=== PATIENT | male | born 1990 | race Caucasian/White ===

== ENCOUNTER 2023-06-15 21:53 | Emergency (ER) | payer BC, SELFPAY ==
--- NOTE | ~2023-06-15 | XR_ITS ---
EXAMINATION: XR chest 1V portable DATE: 06/15/2023 22:13 INDICATION: Cough and congestion. TECHNIQUE: A single frontal view of the chest was obtained. COMPARISON: None. FINDINGS: There is no pneumonia, pleural effusion, or pneumothorax. The heart size is normal. IMPRESSION: 1. No acute cardiopulmonary disease. Reviewed, dictated and finalized at location A. [facility] WEIGHER
[2023-06-15 22:03] VITALS: BP 135/97; PULSE 83; RESP 20; TEMP 36.6; O2SAT 98
--- NOTE | 2023-06-15 22:07 | ED.URI ---
HPI - URI/Sore Throat General Chief Complaint: Upper Respiratory Infection Stated Complaint: SOB/Rib Pain Time Seen by Provider: 06/15/23 22:04 Source: patient Mode of arrival: ambulatory Limitations: no limitations History of Present Illness HPI Narrative: this is a 33-year-old male with history of bronchitis currently being treated with antibiotics does have an inhaler at home has a continued cough and pain with deep inspiration, cough is nonproductive no audible wheezing no history of asthma. The patient is a smoker with no chest pain no nausea vomiting no fever chills no abdominal pain no dysuria no flank pain. MD elicited complaint: cough and nasal congestion Onset (ago): week(s) Consistency: constant Severity: mild Related Data Home Medications Medication Instructions Recorded Confirmed albuterol 90 mcg/actuation aerosol 90 mcg inhalation PRN 06/15/23 06/15/23 inhaler amoxicillin 875 mg-potassium 1 tablet PO Q12H 06/15/23 06/15/23 clavulanate 125 mg tablet prednisone 5 mg tablet 5 mg PO DIRECTED 06/15/23 06/15/23 Allergies Allergy/AdvReac Type Severity Reaction Status Date / Time No Known Allergies Allergy Verified 06/15/23 22:03 Review of Systems Review of Systems: All systems reviewed & are unremarkable except as noted in HPI and below PMFSH Past Medical History Medical History Bronchitis Exam Const: General: healthy appearing and no acute distress Nutritional Appearance: well nourished Limitations: no limitations HENMT: Head: normal to inspection Neck: Neck: normal visual inspection, no lymphadenopathy and no meningeal signs Chest: Chest palpation & inspection: normal inspection of the chest Resp: Effort & Inspection: normal respiratory effort Auscultation: clear to auscultation bilaterally Cardio: Rate: regular rate Rhythm: regular rhythm GI: GI Palp: Yes Soft to palpation Back/Spine/Pelvis: Back: no CVA tenderness Skin: General skin exam: normal color Neuro: General: patient oriented x3 and moves all extremities Extrem: General: normal to inspection and no clubbing, cyanosis or edema Course Course Emergency Course: patient received a chest x-ray was performed and reviewed. Patient received DuoNeb, and COVID RSV and influenza performed and reviewed with patient Critical Care Time Critical Care Time Critical Care Time: No Discharge Plan Discharge Clinical Impression: Bronchitis, Respiratory syncytial virus (RSV) Patient Disposition: Home, Self-Care Condition: Stable Instructions: Antibiotic Form, Acute Bronchitis (ED), RSV (Respiratory Syncytial Virus) Infection (ED) Additional Instructions: advised to take medicine as prescribed and follow-up with primary symptoms persist or worsen. Prescriptions: New levofloxacin 500 mg tablet 500 mg PO DAILY Qty: 7 0RF prednisone 20 mg tablet 20 mg PO DAILY 5 Days Qty: 5 0RF benzonatate 200 mg capsule 200 mg PO TID Qty: 20 0RF No Action prednisone 5 mg Tablet 5 mg PO DIRECTED Rx Instructions: see taper instructions albuterol 90 mcg/actuation Aerosol 90 mcg INHALATION PRN amoxicillin-pot clavulanate [Augmentin] 875-125 mg Tablet 1 tablet PO Q12H Follow-up/Referrals: UNKNOWN,DOCTOR [Primary Care Provider] - Time of Disposition: 22:59
[2023-06-15] MEDS: IPRATROPIUM 0.5 MG/ALBUTEROL SULFATE 2.5 MG AMPUL.NEB 3 ML INHALATION (22:15)
[2023-06-15 22:17] VITALS: PULSE 95; RESP 20; O2SAT 98
[2023-06-15 22:27] VITALS: PULSE 97; RESP 20; O2SAT 97
[2023-06-15] MEDS: cefTRIAXone 1 GM, LIDOCAINE HCL 1% LOCAL INJ 2.1 ML IM (22:35)
[2023-06-15 22:51] LABS: Influenza A QL RT-PCR Negative (Negative); Influenza B QL RT-PCR Negative (Negative); RSV RNA, RT-PCR Positive (Negative); SARS-CoV-2 RNA PCR Negative (Negative)
[2023-06-15] MEDS: BENZONATATE 100 MG CAPSULE 200 MG PO (23:00)
[2023-06-15 23:02] VITALS: BP 133/74; PULSE 100; RESP 20; TEMP 36.6; O2SAT 97
== END 2023-06-15 23:08 | disposition home or self-care (01) ==
PROVIDERS: Emergency Provider Emergency Medicine
DX: J20.5 Acute bronchitis due to respiratory syncytial virus (principal); Z79.899 Other long term (current) drug therapy; Z20.822 Contact with and (suspected) exposure to COVID-19
CPT/HCPCS: 71045; 87637; 94640; 96372; 99283; A9270; J0696

== ENCOUNTER 2023-07-16 23:41 | Emergency (ER) | payer BC, SELFPAY ==
[2023-07-16 23:41] VITALS: BP 156/100; PULSE 110; RESP 20; TEMP 36.3; O2SAT 100
--- NOTE | 2023-07-16 23:59 | ED.SKABFB ---
HPI - Skin/Abscess/Foreign Bdy General Chief complaint: Unspecified Stated complaint: Genital bumps Time Seen by Provider: 07/16/23 23:44 History of Present Illness HPI narrative: 33 years old white male came to the hospital by private car complaining of lumps under the skin of his penis dorsally at least 2. Noticed while urinating today. He denies any pain or fever or chills or discharge. Related Data Home Medications Medication Instructions Recorded Confirmed No Home Medications 07/17/23 07/17/23 Allergies Allergy/AdvReac Type Severity Reaction Status Date / Time No Known Allergies Allergy Verified 07/17/23 00:02 Review of Systems Review of Systems: All systems reviewed & are unremarkable except as noted in HPI and below PMFSH Past Medical History Medical History Bronchitis Exam Narrative: General appearance: Well-developed, well-nourished Skin: Normal color Head: Normocephalic, nontraumatic Eyes: Clear conjunctiva ENT: Oropharynx normal, ears normal, nose normal Neck: Supple, nontender Chest and respiratory: Airway patent, no respiratory distress, no accessory muscle use Heart: Regular rate/rhythm Abdomen: Soft, nontender, no organomegaly, quiet bowel sounds , gentle exam showed 3 cystic lesion under the skin of the penis dorsally, nontender, no discharge, no erythema. Vascular: Normal peripheral pulses, normal capillary refill. Musculoskeletal: Normal range of motion, nontender back Neurologic: Alert and oriented ?3, INTEGRATED SPECIALIST is normal as tested, no gross motor deficit MDM - Skin/Abscess/Foreign Bdy MDM Narrative Medical decision making narrative: My concern are cyst which are fluid filled pumps . They can appeare any where on the body including the penis. Most of the time penile cyst are harmless, . Patient was advised to follow-up with urologist in 5-7 days if there is no improvement or if they are getting worse. Critical Care Time Critical Care Time Critical Care Time: No Discharge Plan Discharge Clinical Impression: Skin lesion Patient Disposition: Home, Self-Care Condition: Stable Instructions: Cyst (ED) Additional Instructions: Call urologist in 5-7 days if there is no improvement or if you are getting worse Prescriptions: No Action prednisone 5 mg Tablet 5 mg PO DIRECTED Rx Instructions: see taper instructions albuterol 90 mcg/actuation Aerosol 90 mcg INHALATION PRN amoxicillin-pot clavulanate [Augmentin] 875-125 mg Tablet 1 tablet PO Q12H levofloxacin 500 mg tablet 500 mg PO DAILY Qty: 7 0RF prednisone 20 mg tablet 20 mg PO DAILY 5 Days Qty: 5 0RF benzonatate 200 mg capsule 200 mg PO TID Qty: 20 0RF Follow-up/Referrals: Carson Burleson MD [Physician] - 07/22/23 Myron Schilling MD [Primary Care Provider] -
== END 2023-07-17 00:08 | disposition home or self-care (01) ==
PROVIDERS: Emergency Provider Emergency Medicine; PCP Family Medicine
DX: L98.9 Disorder of the skin and subcutaneous tissue, unspecified (principal)
CPT/HCPCS: 99281

== ENCOUNTER 2023-11-14 17:41 | Emergency (ER) | payer BC, SELFPAY ==
[2023-11-14 18:47] VITALS: BP 143/89; PULSE 101; RESP 20; TEMP 36.1; O2SAT 97
[2023-11-14 18:51] VITALS: O2SAT 97
[2023-11-14 19:01] LABS: Influenza A QL RT-PCR Negative (Negative); Influenza B QL RT-PCR Negative (Negative); RSV RNA, RT-PCR Negative (Negative); SARS-CoV-2 RNA PCR Negative (Negative); Strep Group A RT-PCR NOT DETECTED (Negative)
--- NOTE | 2023-11-14 19:13 | ED.SOB ---
HPI - SOB/Dyspnea General Chief Complaint: Upper Respiratory Infection Stated Complaint: covid symptoms Time Seen by Provider: 11/14/23 17:42 Source: patient Mode of arrival: ambulatory Limitations: no limitations History of Present Illness HPI Narrative: patient is a 33-year-old male that presents with cough congestion with no audible wheezing mild shortness of breath with no chest pain no fever chills no nausea vomiting no abdominal pain. MD elicited complaint: shortness of breath and cough Onset (ago): day(s) Context: recent illness Related Data Allergies Allergy/AdvReac Type Severity Reaction Status Date / Time No Known Allergies Allergy Verified 07/17/23 00:02 Review of Systems Review of Systems: All systems reviewed & are unremarkable except as noted in HPI and below PMFSH Past Medical History Medical History Bronchitis Exam Const: General: healthy appearing and no acute distress Nutritional Appearance: well nourished Orientation/consciousness: patient oriented x3 Neck: Neck: normal visual inspection Chest: Chest palpation & inspection: normal inspection of the chest Resp: Effort & Inspection: normal respiratory effort Auscultation: clear to auscultation bilaterally Cardio: Rate: regular rate Rhythm: regular rhythm GI: GI Palp: Yes Soft to palpation Auscultation: normal bowel sounds Urinary Catheter: Urinary Catheter: patent and draining Back/Spine/Pelvis: Back: no CVA tenderness Skin: General skin exam: normal color Rashes: no rashes Course Course Emergency Course: COVID RSV and influenza and strep negative will discharge patient with p.o. antibiotics and ProAir inhaler. Vital Signs Vital signs: Vital Signs Temperature 36.1 C L 11/14/23 18:47 Pulse Rate 101 H 11/14/23 18:47 Respiratory Rate 11/14/23 18:47 Blood Pressure 143/89 H 11/14/23 18:47 Pulse Oximetry 97 11/14/23 18:47 Oxygen Delivery Room Air 11/14/23 18:47 Temperature 36.1 C L 11/14/23 18:47 Pulse Rate 101 H 11/14/23 18:47 Respiratory Rate 20 11/14/23 18:47 Blood Pressure 143/89 H 11/14/23 18:47 Pulse Oximetry 97 11/14/23 18:51 Oxygen Delivery Room Air 11/14/23 18:51 MDM - SOB/Dyspnea Lab Data Labs: Lab Results 11/14/23 Range/Units 18:20 Influenza A (RT-PCR) Negative (Negative) Influenza B (RT-PCR) Negative (Negative) RSV (RT-PCR) Negative (Negative) SARS-CoV-2 RNA (RT-PCR) Negative (Negative) Group A Strep (PCR) Not detected (Negative) Critical Care Time Critical Care Time Critical Care Time: No Discharge Plan Discharge Clinical Impression: Bronchitis Patient Disposition: Home, Self-Care Condition: Stable Instructions: Antibiotic Form, Acute Bronchitis (ED) Additional Instructions: Advised to take medicine as prescribed and follow-up with primary care physician if symptoms persist or worsen. Prescriptions: New azithromycin [Zithromax Z-Femi] 250 mg tablet See Rx Instructions .ROUTE .COMPLEX Qty: 6 0RF Rx Instructions: For 250 mg dose pack: take 500 mg today (day 1), then 250 mg for 4 days (days 2-5) ProAir RespiClick 90 mcg/actuation aerosol powdr breath activated 2 inh inhalation QID PRN (Reason: shortness of breath or wheezing) Qty: 1 0RF Follow-up/Referrals: Myron Schilling MD [Primary Care Provider] - Time of Disposition: 19:16
[2023-11-14 19:34] VITALS: BP 142/99; PULSE 91; RESP 22; TEMP 36.9; O2SAT 97
== END 2023-11-14 19:35 | disposition home or self-care (01) ==
PROVIDERS: Emergency Provider Emergency Medicine; PCP Family Medicine
DX: J40 Bronchitis, not specified as acute or chronic (principal); Z20.822 Contact with and (suspected) exposure to COVID-19
CPT/HCPCS: 87637; 87651; 99283

== ENCOUNTER 2024-03-19 18:43 | Emergency (ER) | payer BC, SELFPAY ==
--- NOTE | ~2024-03-19 | CT_ITS ---
History: Blunt trauma PROCEDURE: CT cervical spine without intravenous contrast. COMPARISON: None TECHNIQUE: Multiple contiguous axial images of the cervical spine were performed without the administration of i ntravenous contrast. DLP: 524 mGy-cm FINDINGS: Straightening and slight reversal of the normal curvature of the cervical spine is identified, likely muscular in origin. No acute fractures are present. The bilateral lung apices are unremarkable. No soft tissue abnormality is present. The airway is unremarkable. Impression: Straightening and slight reversal of the normal curvature of the cervical spine, likely muscular in o rigin. No acute fracture. Reviewed, dictated and finalized at location A. E [facility] Impression: Straightening and slight reversal of the normal curvature of the cervical spine , likely muscular in origin. No acute fracture.
--- NOTE | ~2024-03-19 | CT_ITS ---
History: Head pain after a fall without loss of consciousness PROCEDURE: CT head without contrast. COMPARISON: None TECHNIQUE: Axial imaging of the head performed from the skull base to the vertex without IV contrast. Sagittal a nd coronal reformations obtained. DLP: 605 mGy-cm FINDINGS: The ventricles are normal in size, shape and position. There is no mass, mass effect or midline shift. There is no abnormal extra-axial fluid collection or intracranial hemorrhage. Visualized paranasal sinuses are clear. The mastoid air cells are well aerated. No acute displaced fractures within the overlying cranium. Impression: No acute intracranial hemorrhage or suspicious mass effect. Reviewed, dictated and finalized at location A. B[employer] OPERATOR Impression: No acute intracranial hemorrhage or suspicious mass effect.
--- NOTE | ~2024-03-19 | CT_ITS ---
History: Trauma PROCEDURE: CT thoracic spine without intravenous contrast. COMPARISON: None TECHNIQUE: Multiple contiguous axial images of the thoracic spine were performed without the administration of i ntravenous contrast. DLP: 1539 mGy-cm FINDINGS: Preservation of the normal curvature of the thoracic spine is identified. No acute compression fractures are present. No significant degenerative disease is present No soft tissue abnormality is noted. Impression: No acute fracture, as detailed above. Reviewed, dictated and finalized at location A. [facility] [employer] Impression: No acute fracture, as detailed above.
[2024-03-19 18:43] VITALS: BP 164/99; PULSE 92; RESP 16; TEMP 36.6; O2SAT 97
[2024-03-19] MEDS: KETOROLAC (*BKC) 60 MG/2 ML VIAL IM (18:59)
--- NOTE | 2024-03-19 19:20 | ED_ITS ---
HPI - Fall General Chief Complaint: Fall Stated Complaint: back pain Time Seen by Provider: 03/19/24 18:51 Source: patient Mode of arrival: ambulatory Limitations: no limitations History of Present Illness HPI Narrative: this is a 33-year-old male that while standing on a chair, the chair broke and the patient fell back hitting his neck and midback area did not lose consciousness rates his pain about 7 out 10 with no neurological deficits no other injuries currently no headache no blurry vision no nausea vomiting no shortness of breath no chest pain. MD complaint: fall Onset (ago): hour(s) Fall from: standing Fall witnessed: no Place fall occurred: home Loss of consciousness: none Prolonged down time: no Symptoms prior to fall: none Context: tripped/slipped Related Data Allergies Allergy/AdvReac Type Severity Reaction Status Date / Time No Known Allergies Allergy Verified 03/19/24 18:51 Review of Systems Review of Systems: All systems reviewed & are unremarkable except as noted in HPI and below PMFSH Past Medical History Medical History Bronchitis Exam Const: General: healthy appearing Nutritional Appearance: well nourished and obese Orientation/consciousness: patient oriented x3 Limitations: no limitations HENMT: Head: normal to inspection Ears: external ears normal Face/Nose/Sinus: Normal external nose present Face and sinus: normal facial exam Mouth: Yes Normal oral and palatal mucosa present Eyes: Conjunctivae: conjunctivae normal Pupils: Equal, round and reactive p upils present EOM: EOMs intact bilaterally Direct Ophthalmoscopy: no photophobia Neck: Neck: normal visual inspection, no lymphadenopathy and no meningeal signs Chest: Chest palpation & inspection: normal inspection of the chest Resp: Effort & Inspection: normal respiratory effort Auscultation: clear to auscultation bilaterally Cardio: Rate: regular rate Rhythm: regular rhythm GI: GI Palp: Yes Soft to palpation Auscultation: normal bowel sounds Back/Spine/Pelvis: Back: no CVA tenderness Skin: General skin exam: normal color Rashes: no rashes Neuro: General: patient oriented x3, moves all extremities, no meningeal signs and no focal motor deficits Extrem: Other: Tenderness cervical neck area and upper mid back with palpation and movement. Course Course Emergency Course: Patient received 60mg IM Toradol in after reassessment patient's pain level has improved. CT scan of the brain cervical spine and thoracic spine performed and reviewed with patient. Vital Signs Vital signs: Vital Signs Temperature 36.6 C 03/19/24 18:43 Pulse Rate 92 03/19/24 18:43 Respiratory Rate 16 03/19/24 18:43 Blood Pressure 164/99 H 03/19/24 18:43 Pulse Oximetry 97 03/19/24 18:43 Oxygen Delivery Room Air 03/19/24 18:43 Temperature 36.6 C 03/19/24 18:43 Pulse Rate 87 03/19/24 19:25 Respiratory Rate 18 03/19/24 19:25 Blood Pressure 127/100 H 03/19/24 19:25 Pulse Oximetry 98 03/19/24 19:25 Oxygen Delivery Room Air 03/19/24 19:25 Critical Care Time Critical Care Time Critical Care Time: No Discharge Plan Discharge Clinical Impression: Concussion Qualifiers: Encounter type: initial encounter Loss of consciousness presence/duration: without LOC Qualified Code(s): S06.0X0A - Concussion without loss of consciousness, initial encounter Acute cervical myofascial strain Qualifiers: Encounter type: initial encounter Qualified Code(s): S16.1XXA - Strain of muscle, fascia and tendon at neck level, initial encounter Patient Disposition: Home, Self-Care Condition: Stable Instructions: Antibiotic Form, Cervical Strain (ED), Concussion (ED) Additional Instructions: advised to take medication as prescribed and follow up with primary within 1 week for further evaluation and treatment. Prescriptions: New tramadol 50 mg tablet 50 mg PO Q6H PRN (Reason: pain) Qty: 20 0RF No Action azithromycin [Zithromax Z-Femi] 250 mg tablet See Rx Instructions .ROUTE .COMPLEX Qty: 6 0RF Rx Instructions: For 250 mg dose pack: take 500 mg today (day 1), then 250 mg for 4 days (days 2-5) ProAir RespiClick 90 mcg/actuation aerosol powdr breath activated 2 inh inhalation QID PRN (Reason: shortness of breath or wheezing) Qty: 1 0RF Follow-up/Referrals: UNKNOWN,DOCTOR [Non-Staff] - Time of Disposition: 20:27
[2024-03-19 19:25] VITALS: BP 127/100; PULSE 87; RESP 18; O2SAT 98
[2024-03-19 20:32] VITALS: BP 143/92; PULSE 78; RESP 20; O2SAT 97
== END 2024-03-19 20:32 | disposition home or self-care (01) ==
PROVIDERS: Emergency Provider Emergency Medicine; PCP Family Medicine
DX: S16.1XXA Strain of muscle, fascia and tendon at neck level, initial encounter (principal); S06.0X0A Concussion without loss of consciousness, initial encounter; Y92.009 Unspecified place in unspecified non-institutional (private) residence as the place of occurrence of the external cause; W07.XXXA Fall from chair, initial encounter
CPT/HCPCS: 70450; 72125; 72128; 96372; 99284; J1885

== ENCOUNTER 2024-07-01 01:16 | Emergency (ER) | payer BC, SELFPAY ==
[2024-07-01 01:16] VITALS: BP 169/118; PULSE 76; RESP 18; TEMP 37.2; O2SAT 97
--- NOTE | 2024-07-01 01:31 | ED_ITS ---
HPI - Skin/Abscess/Foreign Bdy General Chief complaint: Skin/Abscess/Foreign Body Stated complaint: Rash on Left Leg Time Seen by Provider: 07/01/24 01:31 Source: patient Mode of arrival: ambulatory Limitations: no limitations History of Present Illness HPI narrative: Patient is a 34-year-old male with a left lateral leg skin rash. Also his blood pressure has been running high for a while and he gets woozy more so lately. complaint: rash ( Left lateral leg) Onset (ago): week(s) ( 1) Tetanus up to date: unsure Location: LLE ( lateral) Severity: mild Severity scale (1-10): 1 Quality: burning and pruritic Pain Consistency: constant Relieving factors: none Exacerbating factors: none Context: other ( patient has a left lateral leg red rash and he wears boots for work with a possible exposure to an irritant) Associated symptoms: denies other symptoms Treatments prior to arrival: none Related Data Allergies Allergy/AdvReac Type Severity Reaction Status Date / Time No Known Allergies Allergy Verified 03/19/24 18:51 Review of Systems Review of Systems: All systems reviewed & are unremarkable except as noted in HPI and below Constitutional: Constitutional: Reports no additional constitutional complaints Eyes: Eyes: Reports no additional eye complaints ENT: Reports system reviewed and no additional complaints, except as documented Cardiovascular: Cardiovascular: Reports no additional cardiovascular complaints Respiratory: Respiratory: Reports no additional respiratory complaints Gastrointestinal: Gastrointestinal: Reports no additional gastrointestinal complaints Genitourinary: Genitourinary: Reports no additional male genitourinary complaints Musculoskeletal: Musculoskeletal: Reports no additional musculoskeletal complaints Integumentary/Breasts: Skin/Breast: Reports system reviewed and no additional complaints, except as docu Neurologic: Reports system reviewed and no additional complaints, except as documented Psychiatric: Psychiatric: Reports no additional psychiatric complaints Endocrine: Endocrine: Reports no additional endocrine complaints Hematologic/Lymphatic: Hematologic/Lymphatic: Reports no additional hematologic/lymphatic complaints Allergic/Immunologic: Allergic/Immunologic: Reports no additional allergic/ immunologic complaints PMFSH Past Medical History Medical History Bronchitis Exam Const: General: healthy appearing Nutritional Appearance: well nourished Orientation/consciousness: patient oriented x3 Limitations: no limitations HENMT: Head: normal to inspection Ears: external ears normal Face/Nose/Sinus: Normal external nose present Eyes: Conjunctivae: conjunctivae normal Pupils: Equal, round and reactive pupils present EOM: EOMs intact bilaterally Neck: Neck: normal visual inspection Chest: Chest palpation & inspection: normal inspection of the chest Resp: Effort & Inspection: normal respiratory effort and not labored Auscultation: clear to auscultation bilaterally and no crackles Cardio: Rate: regular rate Rhythm: regular rhythm Heart sounds: no murmurs GI: Inspection: non-distended Auscultation: normal bowel sounds : General: Yes bladder normal to palpation Back/Spine/Pelvis: Back: no CVA tenderness Skin: General skin exam: normal color Rashes: rash noted Wounds: no wounds Other: left lateral leg has a 4 cm circular erythema pruritic eczematous patch Neuro: General: patient oriented x3 Cranial nerves: Yes Nystagmus not present Speech: normal speech Extrem: General: normal to inspection Psych: Mental Status: mental status grossly normal Affect: normal affect Attitude: cooperative Course Vital Signs Vital signs: Vital Signs Temperature 37.2 C 07/01/24 01:16 Pulse Rate 76 07/01/24 01:16 Respiratory Rate 18 07/01/24 01:16 Blood Pressure 169/118 H 07/01/24 01:16 Pulse Oximetry 97 07/01/24 01:16 Oxygen Delivery Room Air 07/01/24 01:16 Temperature 37.2 C 07/01/24 01:16 Pulse Rate 76 07/01/24 01:16 Respiratory Rate 18 07/01/24 01:16 Blood Pressure 169/118 H 07/01/24 01:16 Pulse Oximetry 97 07/01/24 01:16 Oxygen Delivery Room Air 07/01/24 01:16 MDM - Skin/Abscess/Foreign Bdy MDM Narrative Medical decision making narrative: patient is a 34-year-old male with a rash as well as elevated blood pressure. We will give him cream to get tomorrow for the rash as that appears to be dermatitis. Further we will recheck his values of blood pressure and if elevated will give him clonidine this evening. I will send him home with losartan. He will need to talk to his doctor about blood pressure. Discharge Plan Discharge Clinical Impression: Dermatitis of lower extremity, Elevated blood pressure reading without diagnosis of hypertension Patient Disposition: Home, Self-Care Condition: Stable Instructions: Hypertension (ED), Dermatitis (ED) Additional Instructions: please follow-up with the primary doctor in the next week. Have your blood pressure rechecked and make sure the medicine I have given is a knife at that time. Otherwise they will increase the medication. Also discuss with your doctor about the rash. Patient Language: Bulgarian Prescriptions: New losartan 25 mg tablet 25 mg PO DAILY Qty: 30 0RF clotrimazole-betamethasone 1-0.05 % cream 1 applic topical BID PRN (Reason: rash) Qty: 15 0RF No Action azithromycin [Zithromax Z-Femi] 250 mg tablet See Rx Instructions .ROUTE .COMPLEX Qty: 6 0RF Rx Instructions: For 250 mg dose pack: take 500 mg today (day 1), then 250 mg for 4 days (days 2-5) ProAir RespiClick 90 mcg/actuation aerosol powdr breath activated 2 inh inhalation QID PRN (Reason: shortness of breath or wheezing) Qty: 1 0RF tramadol 50 mg tablet 50 mg PO Q6H PRN (Reason: pain) Qty: 20 0RF Follow-up/Referrals: Myron Schilling MD [Primary Care Provider] - Time of Disposition: 02:21
[2024-07-01] MEDS: cloNIDine HCL 0.1 MG TABLET PO (02:25)
[2024-07-01 02:49] VITALS: BP 144/97; PULSE 70; RESP 18; O2SAT 99
== END 2024-07-01 02:49 | disposition home or self-care (01) ==
PROVIDERS: Emergency Provider Emergency Medicine; PCP Family Medicine
DX: L30.9 Dermatitis, unspecified (principal); R03.0 Elevated blood-pressure reading, without diagnosis of hypertension
CPT/HCPCS: 99283; A9270

== ENCOUNTER 2024-07-07 19:32 | Emergency (ER) | payer BC, SELFPAY ==
--- NOTE | 2024-07-07 19:34 | ED.URI ---
HPI - URI/Sore Throat General Chief Complaint: Dental/Oral Stated Complaint: R side of face infection Time Seen by Provider: 07/07/24 19:33 Source: patient Mode of arrival: ambulatory Limitations: no limitations History of Present Illness HPI Narrative: patient is a 34-year-old male with right face pain and right ear pain as well as right dental pain over the past few days. He has known dental issues already and now has right ear pain and sinus pain and pressure as well. All symptoms are on the right side of the face. MD elicited complaint: sinus pain ( Right face) and other ( right dental pain and right ear pain) Pertinent past history: other ( known dental cavities/ trauma) Onset (ago): day(s) ( 3) Consistency: constant Severity: moderate Pain scale (0-10): 8 Description of mucous: clear Able to tolerate fluids by mouth: Yes Exacerbating factors: nothing Relieving factors: nothing Context: other ( upcoming dental work planned by patient) Associated symptoms: nasal congestion and ear pain ( right) Treatments prior to arrival: acetaminophen and ibuprofen Related Data Allergies Allergy/AdvReac Type Severity Reaction Status Date / Time No Known Allergies Allergy Verified 07/01/24 02:29 Review of Systems Review of Systems: All systems reviewed & are unremarkable except as noted in HPI and below Constitutional: Constitutional: Reports no additional constitutional complaints Eyes: Eyes: Reports no additional eye complaints ENT: Reports system reviewed and no additional complaints, except as documented Cardiovascular: Cardiovascular: Reports no additional cardiovascular complaints Respiratory: Respiratory: Reports no additional respiratory complaints Gastrointestinal: Gastrointestinal: Reports no additional gastrointestinal complaints Genitourinary: Genitourinary: Reports no additional male genitourinary complaints Musculoskeletal: Musculoskeletal: Reports no additional musculoskeletal complaints Integumentary/Breasts: Skin/Breast: Reports system reviewed and no additional complaints, except as docu Neurologic: Reports system reviewed and no additional complaints, except as documented Psychiatric: Psychiatric: Reports no additional psychiatric complaints Endocrine: Endocrine: Reports no additional endocrine complaints Hematologic/Lymphatic: Hematologic/Lymphatic: Reports no additional hematologic/lymphatic complaints Allergic/Immunologic: Allergic/Immunologic: Reports no additional allergic/immunologic complaints PMFSH Past Medical History Medical History Bronchitis Exam Const: General: healthy appearing Nutritional Appearance: well nourished Orientation/consciousness: patient oriented x3 HENMT: Head: normal to inspection Ears: external ears normal Face/Nose/Sinus: Normal external nose present Other: red tympanic membrane on the right to include a right red auditory canal (known to use Q-tips); tender sinuses on the right frontal and maxillary area; poor dentition with fractured teeth in the right upper and more so right lower jaw without abscess formation Eyes: Conjunctivae: conjunctivae normal Pupils: Equal, round and reactive pupils present EOM: EOMs intact bilaterally Neck: Neck: normal visual inspection Chest: Chest palpation & inspection: normal inspection of the chest Resp: Effort & Inspection: normal respiratory effort and not labored Auscultation: clear to auscultation bilaterally and no crackles Cardio: Rate: regular rate Rhythm: regular rhythm Heart sounds: no murmurs GI: Inspection: non-distended GI Palp: Yes Soft to palpation and No Tenderness to palpation present (GI) Auscultation: normal bowel sounds : General: Yes bladder normal to palpation Back/Spine/Pelvis: Back: no CVA tenderness Skin: General skin exam: normal color Rashes: no rashes Wounds: no wounds Neuro: General: patient oriented x3 Cranial nerves: Yes Nystagmus not present Speech: normal speech Extrem: General: normal to inspection Psych: Mental Status: mental status grossly normal Affect: normal affect Attitude: cooperative Course Vital Signs Vital signs: Vital Signs Temperature 37.3 C 07/07/24 19:35 Pulse Rate 101 H 07/07/24 19:35 Respiratory Rate 18 07/07/24 19:35 Blood Pressure 169/106 H 07/07/24 19:35 Pulse Oximetry 98 07/07/24 19:35 Oxygen Delivery Room Air 07/07/24 19:35 Temperature 37.3 C 07/07/24 19:35 Pulse Rate 101 H 07/07/24 19:35 Respiratory Rate 18 07/07/24 19:35 Blood Pressure 169/106 H 07/07/24 19:35 Pulse Oximetry 98 07/07/24 19:35 Oxygen Delivery Room Air 07/07/24 19:35 MDM - URI/Sore Throat MDM Narrative Medical decision making narrative: patient is a 34-year-old male with sinus and dental and ear pains for the past few days. We will go ahead and treat with antibiotics and steroids and ear drops. Discharge Plan Discharge Clinical Impression: Mandible pain Otitis media Qualifiers: Otitis media type: unspecified Chronicity: acute Qualified Code(s): H66.90 - Otitis media, unspecified, unspecified ear Otitis externa Qualifiers: Otitis externa type: unspecified type Chronicity: acute Laterality: right Qualified Code(s): H60.501 - Unspecified acute noninfective otitis externa, right ear Sinusitis Qualifiers: Sinusitis location: unspecified location Chronicity: acute Recurrence: non-recurrent Qualified Code(s): J01.90 - Acute sinusitis, unspecified Patient Disposition: Home, Self-Care Condition: Stable Instructions: Sinusitis (ED), Ear Infection (ED) Patient Language: Rwandan Prescriptions: New amoxicillin-pot clavulanate 875-125 mg tablet 1 tablet PO BID 10 Days Qty: 20 0RF prednisone 20 mg tablet 40 mg PO DAILY 3 Days Qty: 6 0RF ykwwxped-ttqhaozhr-MC 3.5-10,000-1 mg/mL-unit/mL-% drops,suspension 3 drp RIGHT EAR TID 7 Days Qty: 10 0RF No Action azithromycin [Zithromax Z-Femi] 250 mg tablet See Rx Instructions .ROUTE .COMPLEX Qty: 6 0RF Rx Instructions: For 250 mg dose pack: take 500 mg today (day 1), then 250 mg for 4 days (days 2-5) ProAir RespiClick 90 mcg/actuation aerosol powdr breath activated 2 inh inhalation QID PRN (Reason: shortness of breath or wheezing) Qty: 1 0RF tramadol 50 mg tablet 50 mg PO Q6H PRN (Reason: pain) Qty: 20 0RF losartan 25 mg tablet 25 mg PO DAILY Qty: 30 0RF clotrimazole-betamethasone 1-0.05 % cream 1 applic topical BID PRN (Reason: rash) Qty: 15 0RF Follow-up/Referrals: Myron Schilling MD [Primary Care Provider] - Time of Disposition: 19:53
[2024-07-07 19:35] VITALS: BP 169/106; PULSE 101; RESP 18; TEMP 37.3; O2SAT 98
--- NOTE | 2024-07-07 19:44 | PC.NURSE ---
DR PETERSON AT THE BEDSIDE
[2024-07-07] MEDS: AMOXICILLIN/CLAVULANATE K 875-125 MG TAB 1 TABLET PO (19:55)
[2024-07-07] MEDS: predniSONE 20 MG TABLET 40 MG PO (19:55)
[2024-07-07] MEDS: NEOMYCIN/POLYMYXIN/HYDROCORT OT SUSP 10 ML BTL (*BKC) 3 DROP RIGHT EAR (19:55)
== END 2024-07-07 20:13 | disposition home or self-care (01) ==
LOC: CHSED 19:56
PROVIDERS: Emergency Provider Emergency Medicine; PCP Family Medicine
DX: H66.90 Otitis media, unspecified, unspecified ear (principal); H60.501 Unspecified acute noninfective otitis externa, right ear; J01.90 Acute sinusitis, unspecified; R68.84 Jaw pain
CPT/HCPCS: 99283; A9270; J7512

== ENCOUNTER 2024-08-14 19:00 | Emergency (ER) | payer BC, SELFPAY ==
--- NOTE | ~2024-08-14 | CT_ITS ---
CT abdomen pelvis w con Ordering provider: Max Harris MD History: 34 years Male with . RLQ ABD AND RIGHT GROIN PAIN. QUESTIONABLE HERNIA. . Comparison: None. Technique: CT abdomen and pelvis with IV and without oral contrast. Automated exposure control and it erative reconstruction technique were employed. The dose-length product was 1866.29 mGy-cm. 100 mL Om nipaque 350 was given IV. Findings: VISUALIZED LOWER CHEST: Normal. Old healed fracture in the right eighth rib. UPPER ABDOMINAL ORGANS: Liver: Hepatomegaly. Gallbladder: Contracted. Spleen: Normal. Stomach/duodenum: Normal. Pancreas: Normal. Adrenals: Normal. Kidneys: Normal. PELVIC ORGANS: The bladder is underfilled with thickened wall. Evaluation for cystitis advised. BOWEL AND MESENTERY: Colon: No evidence of diverticulitis.. Normal appendix. Small Bowel: Normal. No obstruction. Peritoneum/mesentery: No free air or free fluid. No mesenteric lymphadenopathy. RETROPERITONEUM: Normal aorta. No retroperitoneal lymphadenopathy. MUSCULOSKELETAL: Superficial soft tissues: The superficial soft tissues are normal. Bones: Normal spine. IMPRESSION: 1. No evidence of appendicitis, diverticulitis or intestinal obstruction. 2. Hepatomegaly. Reviewed, dictated and finalized at location A.
[2024-08-14 19:05] VITALS: BP 150/99; PULSE 85; RESP 18; TEMP 36.8; O2SAT 96
--- NOTE | 2024-08-14 19:29 | ED.GENADULT ---
HPI - General Adult General Chief complaint: Unspecified Stated complaint: hernia Source: patient Related Data Home Medications ?Medication ?Instructions ?Recorded ?Confirmed ?Last Taken ?Type clonidine HCl 0.1 mg tablet 0.1 mg PO Q12H 07/07/24 07/07/24 Unknown History Allergies Allergy/AdvReac Type Severity Reaction Status Date / Time No Known Allergies Allergy Verified 08/14/24 19:14 [facility] Past Medical History Medical History Bronchitis Course Vital Signs Vital signs: Vital Signs Temperature 36.8 C 08/14/24 19:05 Pulse Rate 85 08/14/24 19:05 Respiratory Rate 18 08/14/24 19:05 Blood Pressure 150/99 H 08/14/24 19:05 Pulse Oximetry 96 08/14/24 19:05 Oxygen Delivery Room Air 08/14/24 19:05 Temperature 36.8 C 08/14/24 22:08 Pulse Rate 80 08/14/24 22:08 Respiratory Rate 18 08/14/24 22:08 Blood Pressure 135/85 08/14/24 22:08 Pulse Oximetry 96 08/14/24 22:08 Oxygen Delivery Room Air 08/14/24 22:08 Medical Decision Making [facility] Narrative Medical decision making narrative: PATIENT CAME WITH RIGHT LOWER QUADRANT PAIN, POSSIBLE HERNIA VITAL SIGNS SHOWING BLOOD PRESSURE 150/99 OTHERWISE INSIGNIFICANT PHYSICAL EXAMINATION SHOWING MILD TO MODERATE TENDERNESS RIGHT LOWER QUADRANT, NO GUARDING OR REBOUND, NO BULGING HERNIA AT THIS TIME DIFFERENTIAL DIAGNOSIS INCLUDE CONSTIPATION, URINARY TRACT INFECTION, APPENDICITIS, INGUINAL HERNIA, ABDOMINAL WALL MUSCLE PAIN BLOOD WORKUP TODAY INCLUDES CBC, CMP, LIPASE SHOWED WBC 11.3, POTASSIUM 3.4, OTHERWISE INSIGNIFICANT ABNORMALITY URINALYSIS SHOWED NO EVIDENCE OF INFECTION OR HEMATURIA CT ABDOMEN AND PELVIS WITH IV CONTRAST SHOWED no acute abnormalities Diagnosis abdominal pain, abdominal wall muscle strain/ sprain is a possibility. Patient was advised to take Tylenol, ibuprofen as needed, to follow up with surgery in few days to rule out the possibility of reducible inguinal hernia. The pt was discharged to home.the pt,s condition upon discharge was fair,education was provided to the pt in reference to the final impression,discharge study results,treatment,prognosis and need for follow up . Vital Signs Vital Signs: Vital Signs Temperature 36.8 C 08/14/24 19:05 Pulse Rate 85 08/14/24 19:05 Respiratory Rate 18 08/14/24 19:05 Blood Pressure 150/99 H 08/14/24 19:05 Pulse Oximetry 96 08/14/24 19:05 Oxygen Delivery Room Air 08/14/24 19:05 Temperature 36.8 C 08/14/24 22:08 Pulse Rate 80 08/14/24 22:08 Respiratory Rate 18 08/14/24 22:08 Blood Pressure 135/85 08/14/24 22:08 Pulse Oximetry 96 08/14/24 22:08 Oxygen Delivery Room Air 08/14/24 22:08 Lab Data 08/14/24 19:41 08/14/24 19:41 Labs: Lab Results 08/14/24 Range/Units 19:41 WBC 11.3 H (4.8-10.8) K/mm3 RBC 4.84 (4.70-6.10) M/mm3 Hgb 14.4 (14.0-18.0) g/dL Hct 43.0 (40.0-54.0) % MCV 88.8 (78.0-102.0) fL MCH 29.8 (27.0-31.0) pg MCHC 33.5 (32-36) g/dL RDW 12.0 (11.6-14.4) % Plt Count 347 (150-420) K/mm3 MPV 9.2 (8.7-11.0) fl Immature Gran % (Auto) 0.4 H (0.0-0.0) % Neut % (Auto) 66.9 (50.0-70.0) % Lymph % (Auto) 25.8 (18.0-42.0) % [place] % (Auto) 6.1 (2.0-11.0) % Eos % (Auto) 0.5 L (1.0-6.0) % Baso % (Auto) 0.3 (0.0-1.0) % Lymph # (Auto) 2.92 (1.10-4.50) K/mm3 [place] # (Auto) 0.69 (0.10-0.90) K/mm3 Eos # (Auto) 0.06 (0.02-0.50) K/mm3 Baso # (Auto) 0.03 (0.00-0.10) K/mm3 Abs Immat Gran (auto) 0.05 H (0.00-0.00) K/mm3 Absolute Neuts (auto) 7.56 H (1.70-7.20) K/mm3 Absolute Nucleated RBC 0.00 (0.00-0.00) K/mm3 Nucleated RBC % 0.0 (0-0.0) % Sodium 140 (136-145) mmol/L Potassium 3.4 L (3.5-5.1) mmol/L Chloride 103 (98-108) mmol/L Carbon Dioxide 31 (21-32) mmol/L Anion Gap 6 (4-12) mmol/L BUN 12 (7-18) mg/dL Creatinine 1.06 (0.70-1.30) mg/dL Estim Creat Clear Calc 117 ml/min Estimated GFR > 60 (59 - ) Glucose 93 (70-99) mg/dL Calculated Osmolality 289 (285-295) mOsm/kg Calcium 8.8 (8.5-10.1) mg/dL Total Bilirubin 0.3 (0.00-1.00) mg/dL AST 19 (15-37) U/L ALT 45 (16-63) U/L Alkaline Phosphatase 131 H (46-116) U/L Total Protein 7.2 (6.4-8.2) g/dL Albumin 3.6 (3.4-5.0) g/dL Lipase 32 (16-77) U/L Urine Color Light yellow (Yellow) Urine Appearance Clear (Clear) Urine pH 7.5 (5.0-8.0) Ur Specific [place] 1.015 (1.010-1.020) Urine Protein Negative (Negative) Urine Glucose (UA) Negative (Negative) Urine Ketones Negative (Negative) Ur Blood (Man) Negative (Negative) Urine Nitrate Negative (Negative) Urine Bilirubin Negative (Negative) Urine Urobilinogen 1.0 (0.2-1.0) mg/dL Leukocyte Esterase Rfl Negative (Negative) SCOT/UL Imaging Data Radiologist's impression: Impressions Abdomen/Pelvis CT 08/14/24 21:40 IMPRESSION: 1. No evidence of appendicitis, diverticulitis or intestinal obstruction. 2. Hepatomegaly. Discharge Plan Discharge Clinical Impression: Abdominal pain Patient Disposition: Home Condition: Stable Instructions: Abdominal Pain (ED) Additional Instructions: Return if symptoms are worsening , call your family physician for appointment, take Tylenol , ibuprofenas as needed for aches and pain, continue home medications. Avoid strenuous activities including lifting Call the surgeon for follow-up Patient Language: Slovak Prescriptions: No Action ProAir RespiClick 90 mcg/actuation aerosol powdr breath activated 2 inh inhalation QID PRN (Reason: shortness of breath or wheezing) Qty: 1 0RF clonidine HCl 0.1 mg tablet 0.1 mg PO Q12H tramadol 50 mg tablet 50 mg PO Q6H PRN (Reason: pain) Qty: 20 0RF losartan 25 mg tablet 25 mg PO DAILY Qty: 30 0RF Follow-up/Referrals: Alicia Frederick MD [Physician] - 08/17/24 Myron Schilling MD [Primary Care Provider] -
--- NOTE | 2024-08-14 19:33 | PC.NURSE ---
pt given urinal and is aware urine specimen is needed
[2024-08-14] MEDS: SODIUM CHLORIDE 0.9% IV 1,000 ML 999 ML IV CONT (19:49)
[2024-08-14] MEDS: ONDANSETRON INJ 4 MG/2 ML VIAL IV PUSH (19:51)
[2024-08-14 19:58] LABS: Add Urine Microscopic? NO; Appearance Urine Clear (Clear); Bilirubin Urine Negative (Negative); Blood Urine Negative (Negative); Color Urine Light Yellow (Yellow); Glucose Urine UA Negative (Negative); Ketones Urine Negative (Negative); Leukocyte Esterase Ur Negative LEU/UL (Negative); Nitrate Urine Negative (Negative); Protein Urine Negative (Negative); Specific Grav Ur 1.015 (1.010-1.020); pH Urine 7.5 (5.0-8.0)
[2024-08-14 19:59] LABS: Basophils Absolute Auto 0.03 K/mm3 (0.00-0.10); Basophils Percent Auto 0.3 % (0.0-1.0); Eosinophils Absolute Auto 0.06 K/mm3 (0.02-0.50); Eosinophils Percent Auto 0.5 % (1.0-6.0); Hemoglobin 14.4 g/dL (14.0-18.0); Immature Granulocyte Absolute 0.05 K/mm3 (0.00-0.00); Immature Granulocyte Percent A 0.4 % (0.0-0.0); Lymphocytes Absolute Auto 2.92 K/mm3 (1.10-4.50); Lymphocytes Percent Auto 25.8 % (18.0-42.0); Mean Corpuscular HGB Conc 33.5 g/dL (32-36); Mean Corpuscular Hemoglobin 29.8 pg (27.0-31.0); Mean Corpuscular Volume 88.8 fL (78.0-102.0); Mean Platelet Volume 9.2 fl (8.7-11.0); Monocytes Absolute Auto 0.69 K/mm3 (0.10-0.90); Monocytes Percent Auto 6.1 % (2.0-11.0); Neutrophils Absolute Auto 7.56 K/mm3 (1.70-7.20); Neutrophils Percent Auto 66.9 % (50.0-70.0); Platelet Count Result 347 K/mm3 (150-420); Red Blood Count 4.84 M/mm3 (4.70-6.10); White Blood Count 11.3 K/mm3 (4.8-10.8)
--- NOTE | 2024-08-14 19:59 | PC.NURSE ---
IV started and patient medicated per order, see MAR. patient refused morphine at this time, states he prefers to not take any controlled narcotics due to his family history of addiction. ERP aware. patient awaiting CT scan. family at bedside.
[2024-08-14 20:13] LABS: Alanine Aminotransferase 45 U/L (16-63); Albumin Level 3.6 g/dL (3.4-5.0); Alkaline Phosphatase 131 U/L (46-116); Anion Gap 6 mmol/L (4-12); Aspartate Amino Transferase 19 U/L (15-37); Bilirubin,Total 0.3 mg/dL (0.00-1.00); Blood Urea Nitrogen 12 mg/dL (7-18); Calcium 8.8 mg/dL (8.5-10.1); Carbon Dioxide 31 mmol/L (21-32); Chloride 103 mmol/L (98-108); Estimated CRCL calculation 117 ml/min; Estimated Glomerular Filt Rate > 60; Glucose 93 mg/dL (70-99); Lipase 32 U/L (16-77); Osmolality Calculated 289 mOsm/kg (285-295); Potassium 3.4 mmol/L (3.5-5.1); Sodium 140 mmol/L (136-145); Total Protein 7.2 g/dL (6.4-8.2)
--- NOTE | 2024-08-14 20:35 | PC.NURSE ---
patient resting on stretcher, denies needs. family at bedside, call light within reach. patient reports improved nausea post preventive medicine specialist. denies needing pain medication at this time. call light within reach. ivf infusing.
--- NOTE | 2024-08-14 21:28 | PC.NURSE ---
patient resting on stretcher. IVF infused. patient offered warm blanket, given to his son. patient family remains at bedside. patient awaiting results of imaging.
[2024-08-14 22:08] VITALS: BP 135/85; PULSE 80; RESP 18; TEMP 36.8; O2SAT 96
--- NOTE | 2024-08-14 22:08 | PC.NURSE ---
patient resting on stretcher without distress, family at bedside. update provided. vss. call light within reach.
== END 2024-08-14 22:58 | disposition home or self-care (01) ==
PROVIDERS: Emergency Provider Emergency Medicine; PCP Family Medicine
DX: R10.9 Unspecified abdominal pain (principal)
CPT/HCPCS: 36415; 74177; 80053; 81003; 83690; 85025; 96361; 96374; 99284; J2270; J2405; J7030; Q9967

== ENCOUNTER 2024-12-04 05:10 | Emergency (ER) | payer BC, SELFPAY ==
--- OUTSIDE RECORDS SUMMARY | 2024-12-04 05:12 | XMS_ITS | Encounter Summary ---
Author Organization [facility] Address [facility] [place] [address] Care Team Providers Care Insurance Claims Processor Name Role Phone Gaviota Ba MD Primary Care Provider [phone] None, Provider Primary Care Provider Unavaila ble Gaviota Ba MD Primary Care Provider [phone] Myron Schilling MD Primary Care Provider [phone] Encounter Details Date Type Department Care Team (Late st Contact Info) Description 04/14/2018 Pastoral Care Encounter [facility] [address] [place] [address] Anna Wild [address] [place] [address] Social History Tobacco Use Types Packs/Day Years Used Date Smoking Tobacco: Never Assessed Sex and Gender Information Value Date Recorded Sex Assigned at Male 11/12/2024 4:08 PM CDT Legal Sex Male 8:47 PM CDT Gender Identity Not on file Sexual Orientation Not on file documented as of this encounter Plan of Treatment Not on file documented as of this encounter Visit Diagnoses Not on filedocumented in this encounter Additional Health Concerns Infection Onset Date Last Indicated Resolved Time COVID-19 Rule Out 04/10/2023 04/10/2023 04/10/2023 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
--- OUTSIDE RECORDS SUMMARY | 2024-12-04 05:12 | XMS_ITS | Clinical Summary ---
Author Organization [facility] Address [address] [place] [address] Care Team Providers Care Bore Mill Operator Name Role Phone Myron Schilling MD Primary Care Provider [phone] Allergies Active Allergy Reactions Criticality Noted Date Comments Lactose Diarrhea 04/10/2023 Medications azithromycin (ZITHROMAX Z-NETTA) 250 MG tablet Take 2 tabs on Day 1, then 1 tab on days 2-5 6 tablet 04/10/2023 Active Active Problems Problem Noted Date Diagnosed Date Ingestion of caustic substance 03/15/2019 Encounters Date Type Department Care Team Description 11/12/2024 4:11 PM CDT - 11/12/2024 11:59 PM CDT Hospital Encounter [facility] [address] [facility] [place] [address] Myron Schilling MD Discharge Disposition: Home or Self Care (Routine Discharge) 11/12/2024 Travel from Last 3 Months Immunizations Immunization Administration Dates Next Due Afluria 36 MONTHS+ (Prefilled Syringe IIV4) 03/06 Social History Tobacco Use Types Packs/Day Years Used Date Smoking Tobacco: Every Day Cigarettes Smokeless Tobacco: Never Alcohol Use Standard Drinks/Week Comments Not Currently 0 (1 standard drink = 0.6 oz pur e alcohol) Sex and Gender Information Value Date Recorded Sex Assigned at Male 11/12/2024 4:08 PM CDT Legal Sex Male 8:47 PM CDT Gender Identity Not on file Sexual Orientation Not on file Last Filed Vital Signs Vital Sign Reading Time Taken Comments Blood Pressure 149/93 04/10/2023 3:39 PM CONSTRUCTION SECRETARY Pulse 80 04/10/2023 2:00 PM CONSTRUCTION SECRETARY Temperature 37 C (98.6 F) 04/10/2023 2:00 PM CONSTRUCTION SECRETARY Respiratory Rate 16 04/10/2023 2:00 PM CONSTRUCTION SECRETARY Oxygen Saturation 100% 04/10/2023 3:39 PM CONSTRUCTION SECRETARY Inhaled Oxygen Concentration - - Weight 123 kg (271 lb 4 oz) 04/10/2023 2:[address] Height 172.7 cm (5' 8) 04/10/2023 2:00 PM CONSTRUCTION SECRETARY Body Mass Index 41.24 04/10/2023 2:00 PM CONSTRUCTION SECRETARY Plan of Treatment Health Maintenance Due Date Last Done Comments Annual Physical 1995 Hepatitis C 2010 DTaP, Tdap and Td Vaccines (1 - Tdap) 2011 12/23/1997, 01/26/1994, 1992, Additional history exists Hepatitis B Vaccines (1 of 3 - 19+ 3-dose series) 2011 Pneumococcal Vaccine: Pediatrics (0 to 5 Years) and At-Risk Patients (6 to 49 Years) (1 of 2 - PCV) 2011 HPV Vaccines (1 - 3-dose SCDM series) 2019 COVID-19 Vaccine ( - season) 2024 Meningococcal B Vaccine Aged Out No l onger eligible based on patient's age to complete this topic Meningococcal Vaccine Aged Out No lauro joselyn eligible based on patient's age to complete this topic RSV Immunizations Under 20 Months Aged Out No longer eligible based on patient's age to complete this topic Procedures Procedure Name Priority Date/Time Associated Diagnosis Comments XR SHOULDER LT MIN 2V Routine 11/12/2024 4:23 PM CDT Left shoulder pain XR CERV SPINE 3V Routine 11/12/2024 4:23 PM CDT Cervicalgia from Last 3 Months Results * XR SHOULDER LT MIN 2V (11/12/2024 4:23 PM CDT) Anatomical Region Laterality Modality Shoulder Radiographic Senait ging 11/12/2024 7:46 PM CDT Impressions 11/12/2024 7:47 PM CDT IMPRESSION: Unremarkable. Referred By: Interpreted By: Red Hooker MD, 11/12/2024 7:46 PM Narrative 11/12/2024 7:[address] [place] [address] Examination: Left shoulder. Exam time: 1559 hours. Clinical history: Neck pain radiating into the shoulder. Comparison: None. Technique: Three views. Findings: No fracture, dislocation or other acute bony abnormality is identified. No other significant bone or joint abnormality is noted. The soft tissues are unremarkable. Procedure Note Red Hooker MD - 11/12/[address] [place] [address] Examination: Left shoulder. Exam time: 1559 hours. Clinical history: Neck pain radiating into the shoulder. Comparison: None. Technique: Three views. Findings: No fracture, dislocation or other acute bony abnormality isidentified. No other significant bone or joint abnormality is noted. Thesoft tissues are unremarkable. IMPRESSION: Unremarkable. Referred By: Interpreted By: Red Hooker MD, 11/12/2024 7:46 PM Myron Schilling MD GENERAL IMAGING Final Result * XR CERV SPINE 3V (11/12/2024 4:23 PM CDT) Anatomical Region Laterality Modality Spine Radiographic Senait ging 11/12/2024 7:48 PM CDT Impressions 11/12/2024 7:49 PM CDT IMPRESSION: No acute findings. Mild disc space narrowing, C4-5 and C6-7. Referred By: Interpreted By: Red Hooker MD, 11/12/2024 7:48 PM Narrative 11/12/2024 7:[address] [place] [address] Examination: Cervical spine. Exam time: 1558 hours. Clinical history: Neck pain radiating into the left shoulder. Comparison: 10/30/2018. Technique: AP, lateral and odontoid views. Findings: There is no fracture or dislocation. The vertebral bodies are maintained normally in height. Loss of the normal lordosis is similar to previous and presumed physiologic for this patient. Alignment is otherwise satisfactory. There is now mild disc space narrowing at C4-5 and C6-7. The other intervertebral disc spaces are maintained normally in height. The prevertebral soft tissues are unremarkable. Procedure Note Red Hooker MD - 11/12/2024 [place] [address] [facility] [place] [address] Examination: Cervical spine. Exam time: 1558 hours. Clinical history: Neck pain radiating into the left shoulder. Comparison: 10/30/2018. Technique: AP, lateral and odontoid views. Findings: There is no fracture or dislocation. The vertebral bodies aremaintained normally in height. Loss of the normal lordosis is similar toprevious and presumed physiologic for this patient. Alignment isotherwise satisfactory. There is now mild disc space narrowing at C4-5and C6-7. The other intervertebral disc spaces are maintained normally inheight. The prevertebral soft tissues are unremarkable. IMPRESSION: No acute findings. Mild disc space narrowing, C4-5 and C6-7. Referred By: Interpreted By: Red Hooker MD, 11/12/2024 7:48 PM Myron Schilling MD GENERAL IMAGING Final Result from Last 3 Months Insurance [facility] Advance Directives Documents on File Type Date Recorded Patient Crusher Feeder Expl anation Advance Directives and Living Will 02/28/2012 12:00 AM ADVANCED DIRECTIVES * Full Code (Latest Code Status on File) Date Activated Date Inactivated Comments 03/15/2019 1:07 PM 03/18/2019 6:12 PM Care Teams Bore Mill Operator Relationship Specialty Start Date End Date Myron Schilling MD [address] [place] [address] PCP - General FAMILY PRACTICE 11/12/24
--- OUTSIDE RECORDS SUMMARY | 2024-12-04 05:12 | XMS_ITS | Encounter Summary ---
Author Organization [facility] Address [facility], [id number] [place] [address] Care Team Providers Care Quill Cleaner Name Role Phone Gaviota Ba MD Primary Care Provider [phone] None, Provider Primary Care Provider Unavaila ble Gaviota Ba MD Primary Care Provider [phone] Myron Schilling MD Primary Care Provider [phone] Encounter Details Date Type Department Care Team (Late st Contact Info) Description 10/11/2018 Abstract [facility]FL CONVERSION [address] [place] [address] , Generic Conversion, Social History Tobacco Use Types Packs/Day Years [...] Rule Out 04/10/2023 04/10/2023 04/10/2023 3:07 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
[2024-12-04 05:14] VITALS: BP 166/100; PULSE 90; RESP 18; TEMP 36.2; O2SAT 98
--- NOTE | 2024-12-04 05:16 | PC.NURSE ---
DR JADE AT THE BEDSIDE
--- NOTE | 2024-12-04 05:22 | ED_ITS ---
HPI - Extremity Injury (Upper) General Chief Complaint: Extremity Injury, Upper Stated Complaint: Shoulder Pain Time Seen by Provider: 12/04/24 05:22 Source: patient Mode of arrival: ambulatory Limitations: no limitations History of Present Illness HPI narrative: patient drove himself to the emergency room complaining of left shoulder pain for the last 3 weeks, was seen by his family physician, and had x-ray of the left shoulder with no significant abnormalities. Patient is scheduled for physical therapy next week. Patient been taking ibuprofen. Patient believes that he need some other pain killer because ibuprofen is not strong enough. He denies any trouble breathing or chest pain or radiation of pain he denies any recent trauma. Related Data Home Medications ?Medication ?Instructions ?Recorded ?Confirmed ?Last Taken ?Type clonidine HCl 0.1 mg tablet 0.1 mg PO Q12H 07/07/24 07/07/24 Unknown History Allergies Allergy/AdvReac Type Severity Reaction Status Date / Time No Known Allergies Allergy Verified 12/04/24 05:18 Review of Systems Review of Systems: All systems reviewed & are unremarkable except as noted in HPI and below PMFSH Past Medical History Medical History Bronchitis Exam Narrative: General appearance: Well-developed, well-nourished Skin: Normal color Head: Normocephalic, nontraumatic Eyes: Clear conjunctiva ENT: Oropharynx normal, ears normal, nose normal Neck: Supple, nontender Chest and respiratory: Airway patent, no respiratory distress, no accessory muscle use Heart: Regular rate/rhythm Abdomen: Soft, nontender, no organomegaly, quiet bowel sounds Vascular: Normal peripheral pulses, normal capillary refill. Musculoskeletal: Left shoulder exam showed diffuse tenderness, no bruises, no swelling, no deformity, no erythema no warmth Neurologic: Alert and oriented ?3, PRINTING GREY CLOTH TENDER is normal as tested, no gross motor deficit Course Vital Signs Vital signs: Vital Signs Temperature 36.2 C L 12/04/24 05:14 Pulse Rate 90 12/04/24 05:14 Respiratory Rate 18 12/04/24 05:14 Blood Pressure 166/100 H 12/04/24 05:14 Pulse Oximetry 98 12/04/24 05:14 Oxygen Delivery Room Air 12/04/24 05:14 Temperature 36.2 C L 12/04/24 05:14 Pulse Rate 90 12/04/24 05:14 Respiratory Rate 18 12/04/24 05:14 Blood Pressure 166/100 H 12/04/24 05:14 Pulse Oximetry 98 12/04/24 05:14 Oxygen Delivery Room Air 12/04/24 05:14 Critical Care Time Critical Care Time Critical Care Time: No Discharge Plan Discharge Clinical Impression: Acute shoulder pain Patient Disposition: Home Condition: Stable Instructions: Shoulder Pain (ED) Additional Instructions: Return if symptoms are worsening , call your family physician for appointment, take Tylenol as as needed for aches and pain, continue home medications. Patient Language: Nepali Prescriptions: New diclofenac sodium 75 mg tablet,delayed release (DR/EC) 75 mg PO BID PRN (Reason: pain) Qty: 20 0RF cyclobenzaprine 10 mg tablet 10 mg PO TID PRN (Reason: muscle spasm) Qty: 20 0RF No Action ProAir RespiClick 90 mcg/actuation aerosol powdr breath activated 2 inh inhalation QID PRN (Reason: shortness of breath or wheezing) Qty: 1 0RF clonidine HCl 0.1 mg tablet 0.1 mg PO Q12H tramadol 50 mg tablet 50 mg PO Q6H PRN (Reason: pain) Qty: 20 0RF losartan 25 mg tablet 25 mg PO DAILY Qty: 30 0RF Follow-up/Referrals: Myron Schilling MD [Primary Care Provider] -
[2024-12-04] MEDS: HYDROcodone/acetaminophen (*CRX) 5-325 MG TABLET 1 TAB PO (05:26)
[2024-12-04 05:42] VITALS: BP 158/98; PULSE 88; RESP 20; O2SAT 100
== END 2024-12-04 05:42 | disposition home or self-care (01) ==
PROVIDERS: Emergency Provider Emergency Medicine; PCP Family Medicine
DX: M25.512 Pain in left shoulder (principal)
CPT/HCPCS: 99283; A9270

== ENCOUNTER 2024-12-14 04:55 | Emergency (ER) | payer BC, SELFPAY ==
--- NOTE | ~2024-12-14 | XR_ITS ---
XR shoulder LT min 2V 12/14/2024 05:30 INDICATION: Left shoulder pain PROCEDURE: 4 views left shoulder COMPARISON: No prior studies for comparison. FINDINGS: Fracture, dislocation or subluxation is not identified. The soft tissues appear within norm al limits. No foreign bodies are identified. IMPRESSION: 1: NO ACUTE BONE OR JOINT ABNORMALITY IDENTIFIED. Reviewed, dictated and finalized at location A.
--- OUTSIDE RECORDS SUMMARY | 2024-12-14 04:56 | XMS_ITS | Clinical Summary ---
Author Organization [facility] Address [address] [place] [address] Care Team Providers Care Sewing Machine Bobbin Winder Name Role Phone Myron Schilling MD Primary Care Provider [phone] Allergies Active Allergy Reactions Criticality Noted Date [...] - 11/12/2024 11:59 PM CDT Hospital Encounter [facility] [address] [place] [place] [address] Myron Schilling MD Discharge Disposition: Home or [...] Comments Blood Pressure 149/93 04/10/2023 3:39 PM TUNNEL WORKER Pulse 80 04/10/2023 2:00 PM TUNNEL WORKER Temperature 37 C (98.6 F) 04/10/2023 2:00 PM TUNNEL WORKER Respiratory Rate 16 04/10/2023 2:00 PM TUNNEL WORKER Oxygen Saturation 100% 04/10/2023 3:39 PM TUNNEL WORKER Inhaled Oxygen Concentration - - Weight 123 kg (271 lb 4 oz) 04/10/2023 2:[address] Height 172.7 cm (5' 8) 04/10/2023 2:00 PM TUNNEL WORKER Body Mass Index 41.24 04/10/2023 2:00 PM TUNNEL WORKER Plan of Treatment Health Maintenance Due Date [...] 7:46 PM Narrative 11/12/2024 7:47 PM CDT [address] [place] [address] Examination: Left shoulder. Exam time: 1559 hours. Clinical history: Neck pain radiating into the shoulder. Comparison: None. Technique: Three views. Findings: No fracture, dislocation or other acute bony abnormality is identified. No other significant bone or joint abnormality is noted. The soft tissues are unremarkable. Procedure Note Red Hooker MD - 11/12/[address] [place] [address] Examination: Left shoulder. Exam time: 1559 hours. [...] 7:48 PM Narrative 11/12/2024 7:49 PM CDT [address] [place] [address] Examination: Cervical spine. Exam time: 1558 hours. [...] Procedure Note Red Hooker MD - 11/12/2024 [place] [address] [facility] [place] [address] Examination: Cervical spine. Exam time: 1558 hours. 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
--- OUTSIDE RECORDS SUMMARY | 2024-12-14 04:56 | XMS_ITS | Encounter Summary ---
Author Organization [facility] Address [facility] [place] [address] Care Team Providers Care Impersonator Character Name Role Phone Gaviota Ba MD Primary Care Provider [phone] None, Provider Primary Care Provider Unavaila ble Gaviota Ba MD Primary Care Provider [phone] Myron Schilling MD Primary Care Provider [phone] Encounter Details Date Type Department Care Team (Late st Contact Info) Description 04/14/2018 Pastoral Care Encounter [facility] [address] [place] [address] Anna Wild [address] [place] [address] Social History Tobacco Use Types Packs/Day Years [...] Rule Out 04/10/2023 04/10/2023 04/10/2023 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
--- OUTSIDE RECORDS SUMMARY | 2024-12-14 04:56 | XMS_ITS | Encounter Summary ---
Author Organization [facility] Address [facility] [place] [address] Care Team Providers Care Branch Retail Executive Name Role Phone Gaviota Ba MD Primary Care Provider [phone] None, Provider Primary Care Provider Unavaila ble Gaviota Ba MD Primary Care Provider [phone] Myron Schilling MD Primary Care Provider [phone] Encounter Details Date Type Department Care Team (Late st Contact Info) Description 10/11/2018 Abstract [facility] CONVERSION [address] [place] [address] , Generic Conversion, Social History Tobacco Use [...] Rule Out 04/10/2023 04/10/2023 04/10/2023 3:07 PM 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
[2024-12-14 04:59] VITALS: BP 162/100; PULSE 104; RESP 20; TEMP 36.8; O2SAT 98
--- NOTE | 2024-12-14 05:05 | ED_ITS ---
HPI - Extremity Problem General Chief complaint: Extremity Problem,Nontraumatic Stated complaint: LEFT SHOULDER PAIN Time Seen by Provider: 12/14/24 05:05 Source: patient Mode of arrival: ambulatory Limitations: no limitations History of Present Illness HPI Narrative: patient is a 34-year-old male with a left shoulder pain for the past month. His primary doctor is following and they are doing physical therapy at this time. MRI is planned in the near future. No particular injury. The pain starts at the shoulder as a sharp pain and goes down the left arm. It is also extending into the left neck. MD Complaint: extremity pain, joint swelling and joint paint Onset (ago): month(s) ( One) Pain Consistency: constant Location: left Severity scale (1-10): 6 Quality: stabbing and sharp Radiation: proximal and distal Relieving factors: nothing Exacerbating factors: range of motion, weight bearing, exertion and palpation Associated symptoms: denies other symptoms Context: other ( patient has left shoulder pain that radiates proximally and distally for the past month) Related Data Home Medications ?Medication ?Instructions ?Recorded ?Confirmed ?Last Taken ?Type clonidine HCl 0.1 mg tablet 0.1 mg PO Q12H 07/07/24 07/07/24 Unknown History Allergies Allergy/AdvReac Type Severity Reaction Status Date / Time No Known Allergies Allergy Verified 12/04/24 05:18 Review of Systems Review of Systems: All systems reviewed & are unremarkable except as noted in HPI and below Constitutional: Constitutional: Reports no additional constitutional complaints Eyes: Eyes: Reports no additional eye complaints ENT: Reports system reviewed and no additional complaints, except as documented Cardiovascular: Cardiovascular: Reports no additional cardiovascular complaints Respiratory: Respiratory: Reports no additional respiratory complaints Gastrointestinal: Gastrointestinal: Reports no additional gastrointestinal complaints Genitourinary: Genitourinary: Reports no additional male genitourinary complaints Musculoskeletal: Musculoskeletal: Reports no additional musculoskeletal complaints Integumentary/Breasts: Skin/Breast: Reports system reviewed and no additional complaints, except as docu Neurologic: Reports system reviewed and no additional complaints, except as documented Psychiatric: Psychiatric: Reports no additional psychiatric complaints Endocrine: Endocrine: Reports no additional endocrine complaints Hematologic/Lymphatic: Hematologic/Lymphatic: Reports no additional hematologic/lymphatic complaints Allergic/Immunologic: Allergic/Immunologic: Reports no additional allergic/immunologic complaints [facility] Past Medical History Medical History Bronchitis Exam Const: General: healthy appearing Nutritional Appearance: well nourished Orientation/consciousness: patient oriented x3 HENMT: Head: normal to inspection Ears: external ears normal Face/Nose/Sinus: Normal external nose present Eyes: Conjunctivae: conjunctivae normal Pupils: Equal, round and reactive pupils present EOM: EOMs intact bilaterally Neck: Neck: normal visual inspection Chest: Chest palpation & inspection: normal inspection of the chest Resp: Effort & Inspection: normal respiratory effort and not labored Auscultation: clear to auscultation bilaterally and no crackles Cardio: Rate: regular rate Rhythm: regular rhythm Heart sounds: no murmurs GI: Inspection: non-distended GI Palp: Yes Soft to palpation and No Tenderness to palpation present (GI) Auscultation: normal bowel sounds : General: Yes bladder normal to palpation Back/Spine/Pelvis: Back: no CVA tenderness Skin: General skin exam: normal color Rashes: no rashes Wounds: no wounds Neuro: General: patient oriented x3, moves all extremities and no meningeal signs Extrem: General: normal to inspection Other: left shoulder is tender at the bursa to palpation and extension of pain to the left neck and shoulder and left upper extremity distally Psych: Mental Status: mental status grossly normal Affect: normal affect Attitude: cooperative Course Vital Signs Vital signs: Vital Signs Temperature 36.8 C 12/14/24 04:59 Pulse Rate 104 H 12/14/24 04:59 Respiratory Rate 20 12/14/24 04:59 Blood Pressure 162/100 H 12/14/24 04:59 Pulse Oximetry 98 12/14/24 04:59 Oxygen Delivery Room Air 12/14/24 04:59 Temperature 36.8 C 12/14/24 04:59 Pulse Rate 104 H 12/14/24 04:59 Respiratory Rate 20 12/14/24 04:59 Blood Pressure 162/100 H 12/14/24 04:59 Pulse Oximetry 98 12/14/24 04:59 Oxygen Delivery Room Air 12/14/24 04:59 MDM - Extremity (Nontraumatic) MDM Narrative Medical decision making narrative: patient is a 34-year-old male with left shoulder pain that radiates up and down for the past month. We will get an x-ray. [place]. Prednisone. Imaging Data Attestation: I personally reviewed and interpreted this imaging study as follows: Radiologist's impression: X-ray left shoulder was negative for acute process Discharge Plan Discharge Clinical Impression: Acute shoulder bursitis Qualifiers: Laterality: left Qualified Code(s): M75.52 - Bursitis of left shoulder Patient Disposition: Home Condition: Stable Instructions: Shoulder Bursitis (ED) Patient Language: Icelandic Prescriptions: New hydrocodone-acetaminophen 5-325 mg tablet 1 tablet PO Q8H PRN (Reason: pain) Qty: 20 0RF methylprednisolone [Medrol (Femi)] 4 mg tablets,dose pack See Rx Instructions .ROUTE .COMPLEX Qty: 21 0RF Rx Instructions: orally per package directions No Action ProAir RespiClick 90 mcg/actuation aerosol powdr breath activated 2 inh inhalation QID PRN (Reason: shortness of breath or wheezing) Qty: 1 0RF clonidine HCl 0.1 mg tablet 0.1 mg PO Q12H diclofenac sodium 75 mg tablet,delayed release (DR/EC) 75 mg PO BID PRN (Reason: pain) Qty: 20 0RF cyclobenzaprine 10 mg tablet 10 mg PO TID PRN (Reason: muscle spasm) Qty: 20 0RF tramadol 50 mg tablet 50 mg PO Q6H PRN (Reason: pain) Qty: 20 0RF losartan 25 mg tablet 25 mg PO DAILY Qty: 30 0RF Follow-up/Referrals: Myron Schilling MD [Primary Care Provider] - Time of Disposition: 05:53
[2024-12-14] MEDS: HYDROcodone/acetaminophen (*CRX) 5-325 MG TABLET 1 TAB PO (05:18)
--- OUTSIDE RECORDS SUMMARY | 2024-12-14 05:57 | XMS_ITS | Clinical Summary ---
Author Organization [facility] Address [address] [place] [address] Care Team Providers Care Stapler Hand Name Role Phone Myron Schilling MD Primary Care Provider [phone] Allergies Active Allergy Reactions Criticality Noted Date [...] - 11/12/2024 11:59 PM CDT Hospital Encounter [facility] [address] [facility] [place] [place] [address] Myron Schilling MD Discharge Disposition: Home or [...] Comments Blood Pressure 149/93 04/10/2023 3:39 PM MOTORCYCLE SERVICE TECHNICIAN Pulse 80 04/10/2023 2:00 PM MOTORCYCLE SERVICE TECHNICIAN Temperature 37 C (98.6 F) 04/10/2023 2:00 PM MOTORCYCLE SERVICE TECHNICIAN Respiratory Rate 16 04/10/2023 2:00 PM MOTORCYCLE SERVICE TECHNICIAN Oxygen Saturation 100% 04/10/2023 3:39 PM MOTORCYCLE SERVICE TECHNICIAN Inhaled Oxygen Concentration - - Weight 123 kg (271 lb 4 oz) 04/10/2023 2:[address] Height 172.7 cm (5' 8) 04/10/2023 2:00 PM MOTORCYCLE SERVICE TECHNICIAN Body Mass Index 41.24 04/10/2023 2:00 PM MOTORCYCLE SERVICE TECHNICIAN Plan of Treatment Health Maintenance Due Date [...] 7:46 PM Narrative 11/12/2024 7:47 PM [address] [place] [address] Examination: Left shoulder. Exam time: 1559 hours. Clinical history: Neck pain radiating into the shoulder. Comparison: None. Technique: Three views. Findings: No fracture, dislocation or other acute bony abnormality is identified. No other significant bone or joint abnormality is noted. The soft tissues are unremarkable. Procedure Note Red Hooker MD - 11/12/[address] [place] [address] Examination: Left shoulder. Exam time: 1559 hours. [...] 7:48 PM Narrative 11/12/2024 7:49 PM CDT [address] [place] [address] Examination: Cervical spine. Exam time: 1558 hours. [...] Procedure Note Red Hooker MD - 11/12/2024 [place] [address] [facility] [place] [address] Examination: Cervical spine. Exam time: 1558 hours. 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
--- OUTSIDE RECORDS SUMMARY | 2024-12-14 05:57 | XMS_ITS | Encounter Summary ---
Author Organization [facility] Address [facility] [place] [address] Care Team Providers Care Store Team Member Name Role Phone Gaviota Ba MD Primary Care Provider [phone] None, Provider Primary Care Provider Unavaila ble Gaviota Ba MD Primary Care Provider [phone] Myron Schilling MD Primary Care Provider [phone] Encounter Details Date Type Department Care Team (Late st Contact Info) Description 10/11/2018 Abstract [facility] CONVERSION [address] [place] [address] , Generic Conversion, Social History Tobacco Use [...] Rule Out 04/10/2023 04/10/2023 04/10/2023 3:07 PM FIBER OPTICS TECHNICIAN documented as of this encounter Care Teams Store Team Member Relationship Specialty Start Date End Date Gaviota Ba MD [address] [place] [phone] PCP - General FAMILY PRACTICE 10/30/18 11/17/22 None, Provider, PCP - General UNKNOWN PHYSICIAN SPECIALTY 11/18/22 01/14/23 Gaviota Ba MD [address] [place] [address] PCP - General FAMILY PRACTICE 01/15/23 11/11/24 Myron Schilling MD [address] [place] [address] PCP - General FAMILY PRACTICE 11/12/24 documented as of this encounter
--- OUTSIDE RECORDS SUMMARY | 2024-12-14 05:57 | XMS_ITS | Encounter Summary ---
Author Organization [facility] Address [facility] [place] [address] Care Team Providers Care Retrieval Specialist Name Role Phone Gaviota Ba MD Primary Care Provider [phone] None, Provider Primary Care Provider Unavaila ble Gaviota Ba MD Primary Care Provider [phone] Myron Schilling MD Primary Care Provider [phone] Encounter Details Date Type Department Care Team (Late st Contact Info) Description 04/14/2018 Pastoral Care Encounter [facility] [address] [place] [address] Anna Wild [address] [place] [address] Social History Tobacco Use Types Packs/Day Years [...] Rule Out 04/10/2023 04/10/2023 04/10/2023 3:07 PM 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
[2024-12-14 06:21] VITALS: BP 160/98; PULSE 82; RESP 18; O2SAT 99
== END 2024-12-14 06:21 | disposition home or self-care (01) ==
PROVIDERS: Emergency Provider Emergency Medicine; PCP Family Medicine
DX: M75.52 Bursitis of left shoulder (principal)
CPT/HCPCS: 73030; 99283; A9270; J7512

== ENCOUNTER 2025-02-01 19:54 | Emergency (ER) | payer BC, SELFPAY ==
--- NOTE | ~2025-02-01 | XR_ITS ---
Examination: XR shoulder LT min 2V Clinical History: pain Comparison: 12/14/2024 Technique: 4 views left shoulder Findings/impression: 1. No fracture or dislocation. Reviewed, dictated and finalized at location R.
[2025-02-01 19:54] VITALS: BP 176/114; PULSE 110; RESP 22; TEMP 36.6; O2SAT 97
--- NOTE | 2025-02-01 19:56 | ED.UPPEXIN ---
HPI - Extremity Injury (Upper) General Chief Complaint: Extremity Injury, Upper Stated Complaint: left shoulder pain Time Seen by Provider: 02/01/25 19:55 Source: patient Mode of arrival: ambulatory Limitations: no limitations History of Present Illness HPI narrative: Patient is a 34-year-old male with a left shoulder pain for the past 6 months here with acute pain. Patient was found to have an MRI positive for a small tear in the rotator cuff and he is in PT at this time. There was no definite injury. No other complaints. He recently had a shoulder joint injection with steroids. Orthopedic surgeon following. complaint: injury to: left and shoulder Onset (ago): month(s) (Six with acute on chronic for the past few days for) Other injuries: none Place: home Severity: moderate Severity scale (1-10): 7 Relieving factors: immobilization Exacerbating factors: movement of extremity Context: other (Unknown) Associated symptoms: denies other symptoms Treatments prior to arrival: NSAIDS Related Data Home Medications ?Medication ?Instructions ?Recorded ?Confirmed ?Last Taken ?Type dextroamphetamine-amphetamine ER 30 mg PO DAILY 02/01/25 Unknown History 30 mg 24hr capsule,extend release Allergies Allergy/AdvReac Type Severity Reaction Status Date / Time No Known Allergies Allergy Verified 02/01/25 19:59 Review of Systems Review of Systems: All systems reviewed & are unremarkable except as noted in HPI and below Constitutional: Constitutional: Reports no additional constitutional complaints Eyes: Eyes: Reports no additional eye complaints ENT: Reports system reviewed and no additional complaints, except as documented Cardiovascular: Cardiovascular: Reports no additional cardiovascular complaints Respiratory: Respiratory: Reports no additional respiratory complaints Gastrointestinal: Gastrointestinal: Reports no additional gastrointestinal complaints Genitourinary: Genitourinary: Reports no additional male genitourinary complaints Musculoskeletal: Musculoskeletal: Reports no additional musculoskeletal complaints Integumentary/Breasts: Skin/Breast: Reports system reviewed and no additional complaints, except as docu Neurologic: Reports system reviewed and no additional complaints, except as documented Psychiatric: Psychiatric: Reports no additional psychiatric complaints Endocrine: Endocrine: Reports no additional endocrine complaints Hematologic/Lymphatic: Hematologic/Lymphatic: Reports no additional hematologic/lymphatic complaints Allergic/Immunologic: Allergic/Immunologic: Reports no additional allergic/immunologic complaints PMFSH Past Medical History Medical History Bronchitis Exam Const: General: healthy appearing Nutritional Appearance: well nourished Orientation/consciousness: patient oriented x3 HENMT: Head: normal to inspection Ears: external ears normal Face/Nose/Sinus: Normal external nose present Eyes: Conjunctivae: conjunctivae normal Pupils: Equal, round and reactive pupils present EOM: EOMs intact bilaterally Neck: Neck: normal visual inspection Chest: Chest palpation & inspection: normal inspection of the chest Resp: Effort & Inspection: normal respiratory effort and not labored Auscultation: clear to auscultation bilaterally and no crackles Cardio: Rate: regular rate Rhythm: regular rhythm Heart sounds: no murmurs GI: Inspection: non-distended GI Palp: Yes Soft to palpation and No Tenderness to palpation present (GI) Auscultation: normal bowel sounds : General: Yes bladder normal to palpation Back/Spine/Pelvis: Back: no CVA tenderness Skin: General skin exam: normal color Rashes: no rashes Wounds: no wounds Neuro: General: patient oriented x3, moves all extremities and no meningeal signs Extrem: General: normal to inspection, no clubbing, cyanosis or edema and no pedal edema Other: Tender left shoulder to palpation and range of motion; very small range of motion stimulates pain Psych: Mental Status: mental status grossly normal Affect: normal affect Attitude: cooperative Course Vital Signs Vital signs: Vital Signs Temperature 36.6 C 02/01/25 19:54 Pulse Rate 110 H 02/01/25 19:54 Respiratory Rate 22 H 02/01/25 19:54 Blood Pressure 176/114 H 02/01/25 19:54 Pulse Oximetry 97 02/01/25 19:54 Oxygen Delivery Room Air 02/01/25 19:54 Temperature 36.6 C 02/01/25 19:54 Pulse Rate 110 H 02/01/25 19:54 Respiratory Rate 22 H 02/01/25 19:54 Blood Pressure 176/114 H 02/01/25 19:54 Pulse Oximetry 97 02/01/25 19:54 Oxygen Delivery Room Air 02/01/25 19:54 MDM - Extremity Injury (Upper) MDM Narrative Medical decision making narrative: Patient is a 34-year-old male with a left shoulder pain acute on chronic with known tear rotator cuff. Delta. Toradol. Prednisone. X-ray. Imaging Data Attestation: I personally reviewed and interpreted this imaging study as follows: Radiologist's impression: X-ray left shoulder is negative for acute process Discharge Plan Discharge Clinical Impression: Rotator cuff tear arthropathy of left shoulder Patient Disposition: Home Condition: Stable Instructions: Rotator Cuff Injury (ED) Additional Instructions: Please follow-up with the primary doctor in the orthopedic surgeon as planned. Patient Language: Northern Irish Prescriptions: New hydrocodone-acetaminophen 5-325 mg tablet 1 tablet PO Q8H PRN (Reason: pain) Qty: 20 0RF Rx Instructions: 1-2 tabs per dose prednisone 20 mg tablet 20 mg PO DAILY 3 Days Qty: 3 0RF No Action cyclobenzaprine 10 mg tablet 10 mg PO TID PRN (Reason: muscle spasm) Qty: 20 0RF dextroamphetamine-amphetamine 30 mg capsule,extended release 24hr 30 mg PO DAILY Follow-up/Referrals: Myron Schilling MD [Primary Care Provider, Internal Medicine] Time of Disposition: 20:39
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
--- OUTSIDE RECORDS SUMMARY | 2025-02-01 19:56 | XMS_ITS | Encounter Summary ---
Author Organization [facility] Address [address] [place] [address] Care Team Providers Care Aba Therapist Name Role Phone Gaviota Ba MD Primary Care Provider [phone] None, Provider Primary Care Provider Unavaila [facility] Gaviota Ba MD Primary Care Provider [phone] Myron Schilling MD Primary Care Provider [phone] Encounter Details Date Type Department Care Team (Late st Contact Info) Description 04/14/2018 Pastoral Care Encounter [facility] [address] [place] [address] Anna Wild [address] [place] [address] Social History Tobacco Use Types Packs/Day Years [...] Rule Out 04/10/2023 04/10/2023 04/10/2023 3:07 PM 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
[2025-02-01] MEDS: HYDROcodone/acetaminophen (*CRX) 10-325 MG TABLET 1 TAB PO (20:10)
[2025-02-01] MEDS: KETOROLAC (*BKC) 60 MG/2 ML VIAL IM (20:10)
--- OUTSIDE RECORDS SUMMARY | 2025-02-01 20:33 | XMS_ITS | Encounter Summary ---
Author Organization [facility] Address [facility] [place] [address] Care Team Providers Care Chief Architect Name Role Phone Gaviota Ba MD Primary Care Provider [phone] None, Provider Primary Care Provider Unavaila ble Gaviota Ba MD Primary Care Provider [phone] Myron Schilling MD Primary Care Provider [phone] Encounter Details Date Type Department Care Team (Late st Contact Info) Description 10/11/2018 Abstract [facility] CONVERSION [address] [place] [address] , Generic Conversion, Social History Tobacco Use [...] Rule Out 04/10/2023 04/10/2023 04/10/2023 3:07 PM 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
--- OUTSIDE RECORDS SUMMARY | 2025-02-01 20:34 | XMS_ITS | Clinical Summary ---
Author Organization [facility] Address [address] [place] [address] Care Team Providers Care Knowledge Manager Name Role Phone Myron Bright MD Primary Care Provider [phone] Allergies Active Allergy Reactions Criticality Noted Date [...] - 12/30/2024 11:59 PM T Hospital Encounter [facility] [place] [address] Myron Bright MD Discharge Disposition: Home or Self Care (Routine Discharge) 12/30/2024 Travel 11/12/2024 4:11 PM CDT - 11/12/2024 11:59 PM T Hospital Encounter [facility] [address] [place] [address] Myron Bright MD Discharge Disposition: Home or [...] Comments Blood Pressure 149/93 04/10/2023 3:39 PM AUTO RESEARCH ENGINEER Pulse 80 04/10/2023 2:00 PM AUTO RESEARCH ENGINEER Temperature 37 C (98.6 F) 04/10/2023 2:00 PM AUTO RESEARCH ENGINEER Respiratory Rate 16 04/10/2023 2:00 PM AUTO RESEARCH ENGINEER Oxygen Saturation 100% 04/10/2023 3:39 PM AUTO RESEARCH ENGINEER Inhaled Oxygen Concentration - - Weight 123 kg (271 lb 4 oz) 04/10/2023 2:[address] Height 172.7 cm (5' 8) 04/10/2023 2:00 PM AUTO RESEARCH ENGINEER Body Mass Index 41.24 04/10/2023 2:00 PM AUTO RESEARCH ENGINEER Plan of Treatment Health Maintenance Due [...] 1:21 PM Narrative 12/31/2024 1:35 PM [address]T [address] [place] [address] Examination: MRI SHOULDER LT WO CON Exam [...] contusion. Procedure Note Gabe Jordan, - 12/31/2024 [facility] [address] [place] [address] Examination: MRI SHOULDER LT WO CON Exam [...] 7:46 PM Narrative 11/12/2024 7:47 PM CDT [address] [place] [address] Examination: Left shoulder. Exam time: 1559 hours. Clinical history: Neck pain radiating into the shoulder. Comparison: None. Technique: Three views. Findings: No fracture, dislocation or other acute bony abnormality is identified. No other significant bone or joint abnormality is noted. The soft tissues are unremarkable. Procedure Note Red Hooker MD - 11/12/[address] [place] [address] Examination: Left shoulder. Exam time: 1559 hours. [...] 7:48 PM Narrative 11/12/2024 7:49 PM CDT [address] [place] [address] Examination: Cervical spine. Exam time: 1558 hours. [...] Procedure Note Red Hooker MD - 11/12/[address] [place] [address] Examination: Cervical spine. Exam time: 1558 hours. [...] Result from Last 3 Months Insurance [facility] C/O PROVIDER SERVICES PHILLIP [place]OFF[place] [id number] Advance Directives Documents on File Type Date Recorded Patient Superintendent Storage Area Expl anation Advance Directives and Living Will 02/28/2012 12:00 AM ADVANCED DIRECTIVES * Full Code (Latest Code Status on File) Date Activated Date Inactivated Comments 03/15/2019 1:07 PM 03/18/2019 6:12 PM Care Teams Knowledge Manager Relationship Specialty Start Date End Date Myron Bright MD [address] [place] [address] PCP - General FAMILY PRACTICE 11/12/24
--- OUTSIDE RECORDS SUMMARY | 2025-02-01 20:34 | XMS_ITS | Encounter Summary ---
Author Organization [facility] Address [address] [place] [address] Care Team Providers Care Lead Oracle Developer Name Role Phone Gaviota Ba MD Primary Care Provider [phone] None, Provider Primary Care Provider Unavaila [facility] Gaviota Ba MD Primary Care Provider [phone] Myron Schilling MD Primary Care Provider [phone] Encounter Details Date Type Department Care Team (Late st Contact Info) Description 04/14/2018 Pastoral Care Encounter [facility] [address] [place] [address] Anna Wild [address] [place] [address] Social History Tobacco Use Types Packs/Day Years [...] Rule Out 04/10/2023 04/10/2023 04/10/2023 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
[2025-02-01 20:43] VITALS: BP 159/112; PULSE 95; RESP 18; TEMP 36.6; O2SAT 96
== END 2025-02-01 20:45 | disposition home or self-care (01) ==
PROVIDERS: Emergency Provider Emergency Medicine; PCP Family Medicine
DX: M75.102 Unspecified rotator cuff tear or rupture of left shoulder, not specified as traumatic (principal); M12.812 Other specific arthropathies, not elsewhere classified, left shoulder
CPT/HCPCS: 73030; 96372; 99283; A9270; J1885; J7512

== ENCOUNTER 2025-03-08 05:36 | Emergency (ER) | payer BC, SELFPAY ==
--- NOTE | ~2025-03-08 | CT_ITS ---
EXAMINATION: CT cervical spine wo con DATE: 03/08/2025 06:14 INDICATION: Left neck pain radiating to the left shoulder. TECHNIQUE: Computed tomography (CT) of the cervical spine was performed without intravenous contrast. Automated exposure control and iterative reconstruction technique were employed. The dose-length product was 493.84 mGy-cm. COMPARISON: CT cervical spine 03/19/2024 FINDINGS: There are bilateral otomastoid effusions. There is 5 degrees levocurvature of cervical spine. There is mild kyphosis of cervical spine. Vertebral body heights are normal. There is mildly decreased disc height at C2- C3, C3-C4, C4-C5, and C5-C6 and moderately decreased disc height at C6-C7. The following disc levels are specifically discussed: C2-C3: There is moderate bilateral uncovertebral joint osteoarthritis. There is mild bilateral facet joint osteoarthritis. There is mild left neural foraminal stenosis. There is no central canal stenosis. C3-C4: There is severe right and mild left uncovertebral joint osteoarthritis. There is mild bilateral facet joint osteoarthritis. There is moderate right and mild left neural foraminal stenosis. There is mild central canal stenosis. C4-C5: There is mild bilateral uncovertebral joint osteoarthritis. There is mild bilateral facet joint osteoarthritis. There is mild bilateral neural foraminal stenosis. There is moderate central canal stenosis. C5-C6: There is mild bilateral uncovertebral joint osteoarthritis. There is mild bilateral facet joint osteoarthritis. There is no neural foraminal stenosis. There is mild central canal stenosis. C6-C7: There is moderate bilateral uncovertebral joint osteoarthritis. There is moderate bilateral facet joint osteoarthritis. There is mild bilateral neural foraminal stenosis. There is moderate central canal stenosis. C7-T1: There is no uncovertebral joint osteoarthritis. There is severe right and moderate left facet joint osteoarthritis. There is mild right neural foraminal stenosis. There is no central canal stenosis. IMPRESSION: 1. Moderate cervical spondylosis. Reviewed, dictated and finalized at location E. 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
[2025-03-08 05:36] VITALS: BP 156/104; PULSE 95; RESP 17; TEMP 36.6; O2SAT 97
--- OUTSIDE RECORDS SUMMARY | 2025-03-08 05:45 | XMS_ITS ---
Author Organization Unknown Address [address] [place] [phone] Phone Care Team Providers Care Intern Retail Name Role Phone RYANNE HIGHTOWER Attending Unavailable Social History Type Status Start Date End Date Code Code Syst em Sex Male Hospital Discharge Instructions Should you have any questions prior to discharge, please contact a member of your healthcare team. If you have left the hospital and have any questions, please contact your primary care physician. Reason For Referral No Data Found Procedures Procedure Name Date Status Code Code Syste m ARTHROCENTESIS ASPIR&/INJ MA NICK JT/BURSA W/O US; (-LT Left side of body) 01/08/2025 completed CPT Plan of Treatment New Patient 04/05/2025 Encounters Encounter Diagnosis Start Date Code Code Sys tem Pain in left shoulder 01/08/2025 SNOMED -CT Personal Care Team Section
--- OUTSIDE RECORDS SUMMARY | 2025-03-08 05:45 | XMS_ITS | Encounter Summary ---
Author Organization [facility] Address [address] [place] [address] Care Team Providers Care Hand I Thermal Cutter Name Role Phone Gaviota Ba MD Primary Care Provider [phone] None, Provider Primary Care Provider [facility] Gaviota Ba MD Primary Care Provider [phone] Myron Schilling MD Primary Care Provider [phone] Encounter Details Date Type Department Care Team (Late st Contact Info) Description 04/14/2018 Pastoral Care Encounter [facility] [address] [place] [address] Anna Wild [address] [place] [address] Social History Tobacco Use Types Packs/Day Years [...] Rule Out 04/10/2023 04/10/2023 04/10/2023 3:07 PM 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
--- OUTSIDE RECORDS SUMMARY | 2025-03-08 05:46 | XMS_ITS | Clinical Summary ---
Author Organization [facility] Address [address] [place] [address] Care Team Providers Care Php Architect Name Role Phone Elvia Bright MD Primary Care Provider [phone] Allergies Active Allergy Reactions Criticality Noted Date Comments Lactose Diarrhea 04/10/2023 Medications azithromycin (ZITHROMAX Z-NETTA) 250 MG tablet Take 2 tabs on Day 1, then 1 tab on days 2-5 6 tablet 04/10/2023 Active Active Problems Problem Noted Date Diagnosed Date Ingestion of caustic substance 03/15/2019 Encounters Date Type Department Care Team Description 12/30/2024 6:56 AM CDT - 12/30/2024 11:59 PM CDT Hospital Encounter [facility] [place] [id number] [place] [address] Elvia Bright MD Discharge Disposition: Home or Self Care (Routine Discharge) 12/30/2024 Travel from Last 3 Months Immunizations Immunization [...] Comments Blood Pressure 149/93 04/10/2023 3:39 PM ENCEPHALOGRAPHER Pulse 80 04/10/2023 2:00 PM ENCEPHALOGRAPHER Temperature 37 C (98.6 F) 04/10/2023 2:00 PM ENCEPHALOGRAPHER Respiratory Rate 16 04/10/2023 2:00 PM ENCEPHALOGRAPHER Oxygen Saturation 100% 04/10/2023 3:39 PM ENCEPHALOGRAPHER Inhaled Oxygen Concentration - - Weight 123 kg (271 lb 4 oz) 04/10/2023 2:[address] Height 172.7 cm (5' 8) 04/10/2023 2:00 PM ENCEPHALOGRAPHER Body Mass Index 41.24 04/10/2023 2:00 PM ENCEPHALOGRAPHER Plan of Treatment Health Maintenance Due Date [...] series) 2019 COVID-19 Vaccine ( - season) 2025 Influenza Adult (#1) 2025 03/18/2019 Hepatitis A Vaccines Aged Out No long er eligible based on patient's age to complete this topic Meningococcal B Vaccine Aged Out No l [...] 7:59 AM CDT Pain in left shoulder from Last 3 Months Results * MRI [...] 50% of the tendon thickness. Ordered By: ELVIA BRIGHT Interpreted By: Gabe Jordan DO, 12/31/2024 1:21 PM Narrative 12/31/2024 1:35 PM CDT [facility] [address] [place] [address] Examination: MRI SHOULDER LT WO CON Exam [...] intensity fracture line, suggesting contusion. Procedure Note NikkiGabe Shahriar, DO - 12/31/2024 [place] [id number] [place] [address] Examination: MRI SHOULDER LT WO CON Exam [...] approximately 50% of thetendon thickness. Ordered By: ELVIA Abrahamally Signed By: Gabe Jordan DO on 12/31/2024 1:35 PM Interpreted By: Gabe Jordan DO, 12/31/2024 1:21 PM us Elvia Bright MD MRI Final Result from Last 3 Months Insurance BLUE [employer] MEDICAID C/O [employer] [place] [id number] Advance Directives Documents on File Type Date Recorded Patient Vocational Aide Expl anation Advance Directives and Living Will 02/28/2012 12:00 AM ADVANCED DIRECTIVES * Full Code (Latest Code Status on File) Date Activated Date Inactivated Comments 03/15/2019 1:07 PM 03/18/2019 6:12 PM Care Teams Php Architect Relationship Specialty Start Date End Date Elvia Bright MD [address] [place] [address] PCP - General FAMILY PRACTICE 11/12/24
--- NOTE | 2025-03-08 05:48 | ED.EXTPRO ---
HPI - Extremity Problem General Chief complaint: Extremity Problem,Nontraumatic <Wally Patten MD - Last Filed: 03/08/25 06:12> Stated complaint: L Shoulder Injury <Wally Patten MD - Last Filed: 03/08/25 06:12> Time Seen by Provider: 03/08/25 07:30 <Wally Patten MD - Last Filed: 03/08/25 06:12> Source: patient <Wally Patten MD - Last Filed: 03/08/25 06:12> Mode of arrival: ambulatory <Wally Patten MD - Last Filed: 03/08/25 06:12> Limitations: no limitations <Wally Patten MD - Last Filed: 03/08/25 06:12> History of Present Illness HPI Narrative: Patient is a 34-year-old male with chronic left shoulder pain and unknown tear here with reproduced pain in this left shoulder again. Also there is some cervical spine complaints and pain. He is awaiting an MRI of the cervical spine. The MRI of the left shoulder shows a small tear according to the patient. Orthopedic surgeon following this patient. No particular injuries. <Wally Patten MD - Last Filed: 03/08/25 06:12> MD Complaint: joint paint (C-spine and left shoulder) <Wally Patten MD - Last Filed: 03/08/25 06:12> Onset (ago): month(s) <Wally Patten MD - Last Filed: 03/08/25 06:12> Pain Consistency: constant <Wally Patten MD - Last Filed: 03/08/25 06:12> Location: left and upper extremity (Left shoulder and now cervical spine area) <Wally Patten MD - Last Filed: 03/08/25 06:12> Severity scale (1-10): 10 <Wally Patten MD - Last Filed: 03/08/25 06:12> Quality: sharp and constant <Wally Patten MD - Last Filed: 03/08/25 06:12> Radiation: proximal <Wally Patten MD - Last Filed: 03/08/25 06:12> Relieving factors: immobilization <Wally Patten MD - Last Filed: 03/08/25 06:12> Exacerbating factors: range of motion and exertion <Wally Patten MD - Last Filed: 03/08/25 06:12> Associated symptoms: denies other symptoms <Wally Patten MD - Last Filed: 03/08/25 06:12> Context: other (Patient has acute on chronic left shoulder pain and now neck cervical spine pain. We will check CT of the cervical spine but I recommend MRI of this area at this time. ) <Wally Patten MD - Last Filed: 03/08/25 06:12> Related Data Home medications: Home Medications ?Medication ?Instructions ?Recorded ?Confirmed ?Last Taken ?Type dextroamphetamine-amphetamine ER 30 mg PO DAILY 02/01/25 Unknown History 30 mg 24hr capsule,extend release <Wally Patten MD - Last Filed: 03/08/25 06:12> Allergies/Adverse reactions: Allergies Allergy/AdvReac Type Severity Reaction Status Date / Time No Known Allergies Allergy Verified 03/08/25 05:46 <Wally Patten MD - Last Filed: 03/08/25 06:12> PMFSH Past Medical History Medical History: Medical History Bronchitis <Wally Patten MD - Last Filed: 03/08/25 06:12> Exam Const: General: healthy appearing <Wally Patten MD - Last Filed: 03/08/25 06:12> Nutritional Appearance: well nourished <Wally Patten MD - Last Filed: 03/08/25 06:12> Orientation/consciousness: patient oriented x3 <Wally Patten MD - Last Filed: 03/08/25 06:12> Limitations: no limitations <Wally Patten MD - Last Filed: 03/08/25 06:12> HENMT: Head: normal to inspection <Wally Patten MD - Last Filed: 03/08/25 06:12> Ears: external ears normal <MD Barry Mensah Last Filed: 03/08/25 06:12> Face/Nose/Sinus: Normal external nose present <MD Barry Mensah Last Filed: 03/08/25 06:12> Eyes: Conjunctivae: conjunctivae normal <MD Barry Mensah Last Filed: 03/08/25 06:12> Pupils: Equal, round and reactive pupils present <Wally Patten MD - Last Filed: 03/08/25 06:12> EOM: EOMs intact bilaterally <MD Barry Mensah Last Filed: 03/08/25 06:12> Neck: Neck: normal visual inspection <Wlaly Patten MD - Last Filed: 03/08/25 06:12> Chest: Chest palpation & inspection: normal inspection of the chest <MD Barry Mensah Last Filed: 03/08/25 06:12> Resp: Effort & Inspection: normal respiratory effort and not labored <MD Barry Mensah Last Filed: 03/08/25 06:12> Auscultation: clear to auscultation bilaterally and no crackles <MD Barry Mensah Last Filed: 03/08/25 06:12> Cardio: Rate: regular rate <MD Barry Mensah Last Filed: 03/08/25 06:12> Rhythm: regular rhythm <MD Barry Mensah Last Filed: 03/08/25 06:12> Heart sounds: no murmurs <MD Barry Mensah Last Filed: 03/08/25 06:12> GI: Inspection: non-distended <MD Barry Mensah Last Filed: 03/08/25 06:12> GI Palp: Yes Soft to palpation and No Tenderness to palpation present (GI) <MD Barry Mensah Last Filed: 03/08/25 06:12> Auscultation: normal bowel sounds <MD Barry Mensah Last Filed: 03/08/25 06:12> : General: Yes bladder normal to palpation <Wally Patten MD - Last Filed: 03/08/25 06:12> Back/Spine/Pelvis: Back: no CVA tenderness <Wally Patten MD - Last Filed: 03/08/25 06:12> Other: Cervical spine is tender on the left paraspinal muscles and some in the midline too <Wally Patten MD - Last Filed: 03/08/25 06:12> Skin: General skin exam: normal color <Wally Patten MD - Last Filed: 03/08/25 06:12> Rashes: no rashes <Wally Patten MD - Last Filed: 03/08/25 06:12> Wounds: no wounds <Wally Patten MD - Last Filed: 03/08/25 06:12> Neuro: General: patient oriented x3, moves all extremities and no meningeal signs <Wally Patten MD - Last Filed: 03/08/25 06:12> Extrem: General: normal to inspection, no clubbing, cyanosis or edema and no pedal edema <Wally Patten MD - Last Filed: 03/08/25 06:12> Other: Tender left shoulder range of motion which is a chronic change to this shoulder <Wally Patten MD - Last Filed: 03/08/25 06:12> Psych: Mental Status: mental status grossly normal <Wally Patten MD - Last Filed: 03/08/25 06:12> Affect: normal affect <Wally Patten MD - Last Filed: 03/08/25 06:12> Attitude: cooperative <Wally Patten MD - Last Filed: 03/08/25 06:12> Course Vital Signs Vital signs: Vital Signs Temperature 36.6 C 03/08/25 05:36 Pulse Rate 95 03/08/25 05:36 Respiratory Rate 17 03/08/25 05:36 Blood Pressure 156/104 H 03/08/25 05:36 Pulse Oximetry 97 03/08/25 05:36 Oxygen Delivery Room Air 03/08/25 05:36 Temperature 36.4 C 03/08/25 06:02 Pulse Rate 92 03/08/25 06:02 Respiratory Rate 15 03/08/25 06:02 Blood Pressure 130/81 03/08/25 06:02 Pulse Oximetry 97 03/08/25 06:02 Oxygen Delivery Room Air 03/08/25 06:02 <Wally Patten MD - Last Filed: 03/08/25 06:12> Vital Signs Temperature 36.6 C 03/08/25 05:36 Pulse Rate 95 03/08/25 05:36 Respiratory Rate 17 03/08/25 05:36 Blood Pressure 156/104 H 03/08/25 05:36 Pulse Oximetry 97 03/08/25 05:36 Oxygen Delivery Room Air 03/08/25 05:36 Temperature 36.4 C 03/08/25 06:02 Pulse Rate 92 03/08/25 06:02 Respiratory Rate 15 03/08/25 06:02 Blood Pressure 130/81 03/08/25 06:02 Pulse Oximetry 97 03/08/25 06:02 Oxygen Delivery Room Air 03/08/25 06:02 <Max Harris MD - Last Filed: 03/08/25 07:37> MDM - Extremity (Nontraumatic) MDM Narrative Medical decision making narrative: Patient is a 34-year-old male with chronic left shoulder pain and new or cervical spine pain. No injuries. CT cervical spine. Prednisone and Toradol. I spent a few moments discussing that we cannot continue writing chronic opioids or doing refills at this time. I explained opioids need to be written by the primary doctor who can follow these medications or the orthopedic surgeon. Patient understood situation of refilling opioids. I did say we can treat acutely in the ER however to get his pain under control at this time. <Wally Patten MD - Last Filed: 03/08/25 06:12> Patient is a 34-year-old male with chronic left shoulder pain and new or cervical spine pain. No injuries. CT cervical spine. Prednisone and Toradol. I spent a few moments discussing that we cannot continue writing chronic opioids or doing refills at this time. I explained opioids need to be written by the primary doctor who can follow these medications or the orthopedic surgeon. Patient understood situation of refilling opioids. I did say we can treat acutely in the ER however to get his pain under control at this time. Patient was signed to me at shift change, waiting for CT scan of the cervical spine. I was told that patient can discharged home immediately to follow-up with his family physician and or orthopedic. No prescription of narcotics to be given to the patient <Max Harris MD - Last Filed: 03/08/25 07:37> Imaging Data Attestation: I personally reviewed and interpreted this imaging study as follows: <Wally Patten MD - Last Filed: 03/08/25 06:12> My impression: CT cervical spine without contrast showed No fracture or subluxation. Cervical degenerative disc disease. Neural foraminal stenosis greatest at C6-7 <Max Harris MD - Last Filed: 03/08/25 07:37> Discharge Plan Discharge Clinical Impression: Cervical radiculopathy, Incomplete rotator cuff tear or rupture of left shoulder, not specified as traumatic <Wally Patten MD - Last Filed: 03/08/25 06:12> Patient Disposition: Home <Wally Pattne MD - Last Filed: 03/08/25 06:12> Condition: Stable <Wally Patten MD - Last Filed: 03/08/25 06:12> Instructions: Rotator Cuff Injury (ED), Cervical Radiculopathy (ED) <Wally Patten MD - Last Filed: 03/08/25 06:12> Additional Instructions: Please follow-up with the primary doctor in the orthopedic surgeon as planned in the next 1-2 weeks. Pain medicine and management needs to be done as an outpatient basis. I suggest MRI of the cervical spine to evaluate for cervical nerve and route possible changes as well as the discs. <Wally Patten MD - Last Filed: 03/08/25 06:12> Patient Language: Pashto <Wally Patten MD - Last Filed: 03/08/25 06:12> Prescriptions: No Action cyclobenzaprine 10 mg tablet 10 mg PO TID PRN (Reason: muscle spasm) Qty: 20 0RF dextroamphetamine-amphetamine 30 mg capsule,extended release 24hr 30 mg PO DAILY hydrocodone-acetaminophen 5-325 mg tablet 1 tablet PO Q8H PRN (Reason: pain) Qty: 20 0RF Rx Instructions: 1-2 tabs per dose prednisone 20 mg tablet 20 mg PO DAILY 3 Days Qty: 3 0RF <Wally Patten MD - Last Filed: 03/08/25 06:12> Follow-up/Referrals: Myron Schilling MD [Primary Care Provider, Internal Medicine] <Wally Patten MD - Last Filed: 03/08/25 06:12> Time of Disposition: 06:36 <Wally Patten MD - Last Filed: 03/08/25 06:12> 06:36 <Max Harris MD - Last Filed: 03/08/25 07:37>
[2025-03-08 06:02] VITALS: BP 130/81; PULSE 92; RESP 15; TEMP 36.4; O2SAT 97
[2025-03-08] MEDS: KETOROLAC (*BKC) 60 MG/2 ML VIAL IM (06:13)
[2025-03-08 07:39] VITALS: BP 143/88; PULSE 80; RESP 16; O2SAT 98
== END 2025-03-08 07:39 | disposition home or self-care (01) ==
PROVIDERS: Emergency Provider Emergency Medicine; PCP Family Medicine
DX: M54.12 Radiculopathy, cervical region (principal); M75.102 Unspecified rotator cuff tear or rupture of left shoulder, not specified as traumatic
CPT/HCPCS: 72125; 96372; 99284; J1885; J7512